=== PATIENT | female | born 1965 | race Caucasian/White ===

== ENCOUNTER 2017-08-15 09:35 | Inpatient (IN) | payer SELFPAY ==
[~2017-08-15] VITALS: Ht 160 cm; Wt 84.0 kg
--- NOTE | 2017-08-15 10:44 | EMERGENCY ROOM VISIT NOTE ---
History Report prepared by Kendallibev: Maya Reid Under the Supervision of: Dr. Mustapha Perez M.D. First contact with patient: 09:51 Chief Complaint: WOUND INFECTION Stated Complaint: INFECTED LEFT ANKLE Nursing Triage Summary: Dog gate fell on left ankle 4 weeks ago, now skin erethymatous, painful, weeping, pt worried about infection. History of Present Illness The patient is a 52 year old female who presents to the Emergency Room with complaints of a possible wound infection on her left lower leg. She states a metal dog gate fell on her lower leg 4 weeks ago. The wound has become increasingly erythematous and painful, so she came to the ED this morning. She rates her discomfort as a 5/10 in severity. She states she does not currently have a PCP and has seen no doctor or clinic for the wound before today. She denies any recent fevers. She is not diabetic. The patient cannot remember when her last tetanus shot was. 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 A total of ten systems were reviewed and were otherwise negative. Past Medical & Surgical Medical Problems: (1) Knee joint cyst, left (2) Leg wound, left Social History Smoking Status: Never Smoker Alcohol Use: none Drug Use: none Marital Status: Housing Status: lives with family Occupation Status: retired Current/Historical Medications Scheduled Cholecalciferol (Vitamin D), 1,000 UNITS PO DAILY Fish Oil ([place]-3), 1 CAP PO DAILY Vitamin A-Beta Carotene (Vitamin A), 1 TAB PO DAILY Allergies Coded Allergies: Penicillins (Unverified Allergy, Unknown, UNKNOWN, 08/15/17) Physical Exam Vital Signs Date Time Temp Pulse Resp B/P (MAP) Pulse Ox O2 Delivery O2 Flow Rate FiO2 08/15/17 14:57 82 16 151/82 08/15/17 09:42 37.3 108 18 154/97 97 Room Air Physical Exam GENERAL: She is oriented to person, place, and time. She appears well-developed and well-nourished. she does not appear distressed. ____ HENT: Exam performed. Head: Normocephalic and atraumatic. Right Ear: External ear normal. No mastoid tenderness. Left Ear: External ear normal. No mastoid tenderness. Mouth/Throat: The oropharynx is clear and moist. No trismus in the jaw. No dental abscesses or uvula swelling. No oropharyngeal exudate or tonsillar abscesses. ____ EYES: Conjunctivae and EOM are normal. Pupils are equal, round, and reactive to light. Right eye exhibits no discharge. Left eye exhibits no discharge. No scleral icterus. ____ NECK: Normal range of motion. Neck supple. No JVD present. No spinous process tenderness present. No carotid bruit present. No rigidity. No tracheal deviation and normal range of motion present. No Brudzinski's sign and no Kernig 's sign noted. ____ CV: Normal rate, regular rhythm, normal heart sounds and intact distal pulses. There is no peripheral edema. Palpable radial pulses bue. ____ PULM/CHEST: Effort normal and breath sounds normal. No respiratory distress. No stridor. She has no wheezes. She has no rales. Chest Wall: She exhibits no tenderness. ____ ABD: The abdomen is soft. Bowel sounds are normal. She has no distension. No mass is present. There is no tenderness. There is no rebound, no guarding, no Nolan's sign and no tenderness at McBurney's point. Rovsig negative MUSC/SKEL: Normal range of motion. Large wound over anterolateral left lower extremity, actively draining yellow, foul smelling purulent discharge, surrounding erythema going up the left leg. The wound goes down to the level of the tendon. There is no deformity. LYMPH: No cervical adenopathy. ____ NEURO: She is alert and oriented to person, place, and time. She has normal strength. No cranial nerve deficit or sensory deficit. Coordination and gait normal. GCS eye subscore is 4. GCS verbal subscore is 5. GCS motor subscore is 6. cerebellar tests wnl. ____ PSYCH: She has a normal mood and affect. Her behavior is normal. Judgment and thought content normal. ____ Medical Decision & Procedures ER Provider Diagnostic Interpretation: Radiology results as stated below per my review and radiologist interpretation: L TIBIA/FIBULA 2 VIEWS ROUTINE CLINICAL HISTORY: L leg wound pain. Cellulitis. Infection. COMPARISON: None. DISCUSSION: Moderate soft tissue edema. No acute bony abnormality. No evidence for lytic or blastic process. No abnormal periosteal reaction. Mild generalized osteopenia and degenerative change. Small heel spur. IMPRESSION: Soft tissue edema. No acute bony abnormality. Small heel spur. The above report was generated using voice recognition software. It may contain grammatical, syntax or spelling errors. Electronically signed by: Arsenio Rendon M.D. 08/15/2017 11:11 AM Laboratory Results 08/15/17 11:00 Red Blood Count 4.34, Mean Corpuscular Volume 90.3, Mean Corpuscular Hemoglobin 31.6, Mean Corpuscular Hemoglobin Concent 34.9, Mean Platelet Volume 10.3, Neutrophils (%) (Auto) 77.9, Lymphocytes (%) (Auto) 14.4, Monocytes (%) (Auto) 6.6, Eosinophils (%) (Auto) 0.4, Basophils (%) (Auto) 0.2, Neutrophils # (Auto) 8.66, Lymphocytes # (Auto) 1.60, Monocytes # (Auto) 0.73, Eosinophils # (Auto) 0.05, Basophils # (Auto) 0.02 08/15/17 11:00 Test 08/15/17 11:00 White Blood Count 11.12 K/uL (4.8-10.8) Red Blood Count 4.34 M/uL (4.2-5.4) Hemoglobin 13.7 g/dL (12.0-16.0) Hematocrit 39.2 % (37-47) Mean Corpuscular Volume 90.3 fL (80-100) Mean Corpuscular Hemoglobin 31.6 pg (25-34) Mean Corpuscular Hemoglobin Concent 34.9 g/dl (32-36) Platelet Count 356 K/uL (130-400) Mean Platelet Volume 10.3 fL (7.4-10.4) Neutrophils (%) (Auto) 77.9 % Lymphocytes (%) (Auto) 14.4 % Monocytes (%) (Auto) 6.6 % Eosinophils (%) (Auto) 0.4 % Basophils (%) (Auto) 0.2 % Neutrophils # (Auto) 8.66 K/uL (1.4-6.5) Lymphocytes # (Auto) 1.60 K/uL (1.2-3.4) Monocytes # (Auto) 0.73 K/uL (0.11-0.59) Eosinophils # (Auto) 0.05 K/uL (0-0.5) Basophils # (Auto) 0.02 K/uL (0-0.2) RDW Standard Deviation 40.9 fL (36.4-46.3) RDW Coefficient of Variation 12.3 % (11.5-14.5) Immature Granulocyte % (Auto) 0.5 % Immature Granulocyte # (Auto) 0.06 K/uL (0.00-0.02) Prothrombin Time 10.2 SECONDS (9.0-12.0) Prothromb Time International Ratio 1.0 (0.9-1.1) Anion Gap 12.0 mmol/L (3-11) Est Creatinine Clear Calc Drug Dose 106.5 ml/min Estimated GFR () 118.5 Estimated GFR (Non- 102.2 BUN/Creatinine Ratio 21.6 (10-20) Lactic Acid Level 1.4 mmol/L (0.4-2.0) Calcium Level 9.0 mg/dl (8.5-10.1) Beta-Hydroxybutyric Acid 12.30 mg/dL (0.2-2.81) Laboratory results reviewed by me Medications Administered Medications (Trade) Dose Ordered Sig/Scar Route Start Time Stop Time Status Last Admin Dose Admin Clindamycin Phosphate (Cleocin 600mg/ 54ml D5W) 600 mg ONE ONCE IV 08/15/17 12:30 08/15/17 12:31 DC 08/15/17 12:30 600 MG Acetaminophen (Tylenol Tab) 650 mg Q4H PRN PO 08/15/17 13:30 09/14/17 13:29 08/15/17 14:33 650 MG Ondansetron HCl (Zofran Inj) 4 mg Q6H PRN IV 08/15/17 13:30 09/14/17 13:29 08/15/17 14:34 4 MG ED Course 1040: The patient was evaluated in room B5. A complete history and physical exam was performed. 1155: I reevaluated the patient. I discussed remaining in the hospital for further evaluation and management, but she declines stating she does not have insurance and needs to get home to her Autistic adult son, as she is very concerned that no one will be able to look after him if she stays in the hospital. 1215: I reevaluated the patient. Her vitals are stable. Her WBC is normal and lactic acid is normal. I again advised the patient be evaluated by the hospital medicine team for IV antibiotics and possible surgical debridement. She is again concerned about her son and having no one look after him and states she does not want to be evaluated in the hospital. She does agree to let me give her 1 dose of IV antibiotics. She initially allowed me to make an appointment with the wound care clinic, but later declined because of not having insurance. I discussed the risks and benefits, and she states she is now considering staying in the hospital and will make calls to see if someone can watch her son. 1230: Cleocin 600 mg IV. 1308: I reevaluated the patient. She is agreeable to remaining in the hospital for further evaluation and management. 1330: I discussed the patients case with Dr. De La O [facility] Hospitalist. The patient will be further evaluated. Medical Decision 1155: I reevaluated the patient. I discussed remaining in the hospital for further evaluation and management, but she declines stating she does not have insurance and needs to get home to her Autistic adult son, as she is very concerned that no one will be able to look after him if she stays in the hospital. 1215: I reevaluated the patient. Her vitals are stable. Her WBC is normal and lactic acid is normal. I again advised the patient be evaluated by the hospital medicine team for IV antibiotics and possible surgical debridement. She is again concerned about her son and having no one look after him and states she does not want to be evaluated in the hospital. She does agree to let me give her 1 dose of IV antibiotics. She initially allowed me to make an appointment with the wound care clinic, but later declined because of not having insurance. I discussed the risks and benefits, and she states she is now considering staying in the hospital and will make calls to see if someone can watch her son. 1230: Cleocin 600 mg IV. 1308: I reevaluated the patient. She is agreeable to remaining in the hospital for further evaluation and management. 1330: I discussed the patients case with Dr. De La O, [facility] Hospitalist. The patient will be further evaluated. Medication Reconcilliation Current Medication List: was personally reviewed by me Blood Pressure Screening Patient's blood pressure: Elevated blood pressure Blood pressure disposition: Referred to PCP Consults Time Called: 1330 Consulting Physician: Dr. De La O, [facility] Hospitalist Returned Call: 1330 I discussed the patients case with Dr. De La O [facility] Hospitalist. The patient will be further evaluated. Impression Primary Impression: Non-healing wound of lower extremity Scribe Attestation The scribe's documentation has been prepared under my direction and personally reviewed by me in its entirety. I confirm that the note above accurately reflects all work, treatment, procedures, and medical decision making performed by me. The chart was completed utilizing [employer] voice recognition software. Grammatical errors, random word insertions, pronoun errors, and incomplete sentences are an occasional consequence of this system due to software limitations, ambient noise, and hardware issues. Any formal questions or concerns about the content, text, or information contained within the body of this dictation should be directly addressed to the physician for clarification. Departure Information Dispostion Being Evaluated By Hospitalist Referrals No Doctor, Assigned (PCP) Patient Instructions [facility]
--- NOTE | 2017-08-15 11:13 | DIAGNOSTIC IMAGING REPORT ---
L TIBIA/FIBULA 2 VIEWS ROUTINE CLINICAL HISTORY: L leg wound pain. Cellulitis. Infection. COMPARISON: None. DISCUSSION: Moderate soft tissue edema. No acute bony abnormality. No evidence for lytic or blastic process. No abnormal periosteal reaction. Mild generalized osteopenia and degenerative change. Small heel spur. IMPRESSION: Soft tissue edema. No acute bony abnormality. Small heel spur. The above report was generated using voice recognition software. It may contain grammatical, syntax or spelling errors. Electronically signed by: Arsenio Rendon M.D. 08/15/2017 11:11 AM Dictated Date/Time: 08/15/2017 11:10 AM
[2017-08-15] MEDS ORDERED: CHOL100010 PO (11:16)
[2017-08-15] MEDS ORDERED: OMEG10007 PO (11:16)
[2017-08-15] MEDS ORDERED: VITATAB19 PO (11:16)
[2017-08-15 11:23] LABS: BASO % 0.2 %; BASO ABS # 0.02 K/uL (0-0.2); EOS % 0.4 %; EOS ABS # 0.05 K/uL (0-0.5); HEMATOCRIT 39.2 % (37-47); HEMOGLOBIN 13.7 g/dL (12.0-16.0); IG# 0.06 K/uL (0.00-0.02); LYMPH % 14.4 %; MEAN CELL VOLUME 90.3 fL (80-100); MEAN CORPUSCULAR HEMOGLOBIN 31.6 pg (25-34); MEAN CORPUSCULAR HGB CONC 34.9 g/dl (32-36); MEAN PLATELET VOLUME 10.3 fL (7.4-10.4); MONO % 6.6 %; MONO ABS # 0.73 K/uL (0.11-0.59); NEUT % 77.9 %; NEUT ABS # 8.66 K/uL (1.4-6.5); PLATELET COUNT 356 K/uL (130-400); RED CELL DISTRIBUTION WIDTH CV 12.3 % (11.5-14.5); RED CELL DISTRIBUTION WIDTH SD 40.9 fL (36.4-46.3); WHITE BLOOD COUNT 11.12 K/uL (4.8-10.8)
[2017-08-15 11:46] LABS: CREATININE 0.62 mg/dl (0.60-1.20); POTASSIUM 3.7 mmol/L (3.5-5.1)
[2017-08-15] MEDS ORDERED: CLINDAMYCIN 600 MG/54 ML D5W IV ONE (12:30)
[2017-08-15] MEDS ORDERED: ONDANSETRON INJ 2 MG/ML 2 ML VIAL IV PRN (13:30)
[2017-08-15] MEDS ORDERED: ACETAMINOPHEN 325 MG TAB PO PRN (13:45)
[2017-08-15] MEDS ORDERED: MoRPHine SULFATE 2 MG/ML CARP IV PRN (13:45)
[2017-08-15] MEDS ORDERED: DEXTROSE 50% 50 ML SYR IV PRN (14:15)
[2017-08-15] MEDS ORDERED: GLUCAGON FOR INJ 1 MG VIAL SQ PRN (14:15)
[2017-08-15] MEDS ORDERED: GLUCOSE 10 TABS/TUBE PO PRN (14:15)
[2017-08-15] MEDS ORDERED: GLUCOSE 40% GEL 15 GM TUBE PO PRN (14:15)
--- NOTE | 2017-08-15 14:18 | History and Physical ---
History & Physical Date & Time of Service: Aug 15, 2017 at 13:48 Chief Complaint: Infected Left Ankle Primary Care Physician: No Doctor, Assigned History of Present Illness Source: patient This is a 52 yo F with PMHx of Left knee surgery, obesity with BMI 32, remote 20 pack year smoking history, quit 2 months ago, but no other known medical history with a left leg wound which she sustained after a metal fence hit her leg approximately 4-6 weeks ago. She reports the wound was slowly getting larger and that it became red around the open region. She also notes an increased swelling in her left leg in the past 5 days. She had been treating the wound with vinegar water (1:4 ratio) and polysporin ointment. She was not wrapping the wound tightly but enough to keep it unexposed. She recently got over the stomach flu with diarrhea, vomiting and poor oral intake which started last Wednesday. At this point her symptoms are essentially resolved. Overall she reports a fairly good diet with raw vegetables and fruits, high protein, etc. She goes for walks often because of her dog. Here in the ER it appears the left lateral leg wound is extensive, with tendon exposure, draining purulent material. She is afebrile, VSS and has a minimal WBC of 11K Glucose significantly elevated > 400, + AG =12 and ketones 12.3 so she is also an unknown/newly diagnosed pt with diabetes. Family History Mother: DM, CAD, from DM complications Father: CAD, HTN, HLD, Sister: [employer], 3 years older than pt with hx of CAD and quadruple bypass surgery 7 years ago. 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, ) Multi-Drug Resistant Organisms History of MDRO: No Allergies Coded Allergies: Penicillins (Unverified Allergy, Unknown, UNKNOWN, 08/15/17) Home Medications Scheduled Cholecalciferol (Vitamin D), 1,000 UNITS PO DAILY Fish Oil ([place]-3), 1 CAP PO DAILY Vitamin A-Beta Carotene (Vitamin A), 1 TAB PO DAILY Review of Systems Constitutional: No fever, No chills, No sweats, No weight loss, No fatigue Eyes: No worsening of vision, No diplopia ENT: No sore throat, No trouble swallowing Respiratory: No cough, No shortness of breath, No dyspnea on exertion Cardiovascular: No chest pain, No edema, No palpitations Abdomen: No pain, No nausea, No vomiting, No diarrhea, No constipation Musculoskeletal: + swelling, + problem reported (see HPI), No joint pain Genitourinary - Female: No dysuria Neurologic: No weakness, No numbness/tingling, No balance problems Psychiatric: No depression symptoms, No anxiety Endocrine: No fatigue Integumentary: No rash, No itch Physical Exam Vital Signs Date Time Temp Pulse Resp B/P (MAP) Pulse Ox O2 Delivery O2 Flow Rate FiO2 08/15/17 09:42 37.3 108 18 154/97 97 Room Air General Appearance: WD/WN, no apparent distress, + obese Head: normocephalic, atraumatic Eyes: PERRL, EOMI ENT: hearing grossly normal, pharynx normal Neck: no adenopathy, no JVD Respiratory/Chest: lungs clear, no respiratory distress, no accessory muscle use Cardiovascular: no JVD, no murmur, normal peripheral pulses, + pertinent finding (Regular rate, slightly tachycardic) Abdomen/GI: normal bowel sounds, non tender, soft Back: normal inspection, no CVA tenderness Extremities/Musculoskelatal: no calf tenderness, + pedal edema (1+ pitting BLE. ), + pertinent finding (Left proximal lateral malleolus wound appears to be ~ 9cm in diameter with purulent material and 2 cm of exposed tendon centrally. + Surrounding erythema and warmth. No necrosis. Nonpainful with probe. Pt reports sensation to light touch in lower extremities is intact. Pulse in LLE difficult to palpate. 1+ in RLE.) Neurologic/Psych: alert, normal mood/affect, oriented x 3 Skin: normal color, warm/dry Diagnostics Laboratory Results Results Past 24 Hours Test 08/15/17 11:00 08/15/17 13:27 Range/Units White Blood Count 11.12 4.8-10.8 K/uL Red Blood Count 4.34 4.2-5.4 M/uL Hemoglobin 13.7 12.0-16.0 g/dL Hematocrit 39.2 37-47 % Mean Corpuscular Volume 90.3 80-100 fL Mean Corpuscular Hemoglobin 31.6 25-34 pg Mean Corpuscular Hemoglobin Concent 34.9 32-36 g/dl Platelet Count 356 130-400 K/uL Mean Platelet Volume 10.3 7.4-10.4 fL Neutrophils (%) (Auto) 77.9 % Lymphocytes (%) (Auto) 14.4 % Monocytes (%) (Auto) 6.6 % Eosinophils (%) (Auto) 0.4 % Basophils (%) (Auto) 0.2 % Neutrophils # (Auto) 8.66 1.4-6.5 K/uL Lymphocytes # (Auto) 1.60 1.2-3.4 K/uL Monocytes # (Auto) 0.73 0.11-0.59 K/uL Eosinophils # (Auto) 0.05 0-0.5 K/uL Basophils # (Auto) 0.02 0-0.2 K/uL RDW Standard Deviation 40.9 36.4-46.3 fL RDW Coefficient of Variation 12.3 11.5-14.5 % Immature Granulocyte % (Auto) 0.5 % Immature Granulocyte # (Auto) 0.06 0.00-0.02 K/uL Sodium Level 134 136-145 mmol/L Potassium Level 3.7 3.5-5.1 mmol/L Chloride Level 99 98-107 mmol/L Carbon Dioxide Level 23 21-32 mmol/L Anion Gap 12.0 3-11 mmol/L Blood Urea Nitrogen 13 7-18 mg/dl Creatinine 0.62 0.60-1.20 mg/dl Est Creatinine Clear Calc Drug Dose 106.5 ml/min Estimated GFR () 118.5 Estimated GFR (Non- 102.2 BUN/Creatinine Ratio 21.6 10-20 Random Glucose 434 70-99 mg/dl Lactic Acid Level 1.4 0.4-2.0 mmol/L Calcium Level 9.0 8.5-10.1 mg/dl Beta-Hydroxybutyric Acid 12.30 0.2-2.81 mg/dL Diagnostic Radiology L TIBIA/FIBULA 2 VIEWS ROUTINE CLINICAL HISTORY: L leg wound pain. Cellulitis. Infection. COMPARISON: None. DISCUSSION: Moderate soft tissue edema. No acute bony abnormality. No evidence for lytic or blastic process. No abnormal periosteal reaction. Mild generalized osteopenia and degenerative change. Small heel spur. IMPRESSION: Soft tissue edema. No acute bony abnormality. Small heel spur. The above report was generated using voice recognition software. It may contain grammatical, syntax or spelling errors. Electronically signed by: Arsenio Rendon M.D. 08/15/2017 11:11 AM Dictated Date/Time: 08/15/2017 11:10 AM The status of this report is Signed. Impression Assessment and Plan 52 yo F with PMHx of Left knee surgery, obesity with BMI 32, remote 20 pack year smoking history, quit 2 months ago, but no other known medical history with a left leg wound which she sustained after a metal fence hit her leg approximately 4-6 weeks ago. Left Lower extremity wound - Admit to med/surg - Sustained from metal fence falling on the pt leg. - WBC minimally elevated at 11K, afebrile, VSS - Pt had been using vinegar water, polysporin and wrapping a lose dressing overtop of the wound - Wound consulted - Dr. Covarrubias per request of Dr. Robyn Ivan - ? wound vac. Consider orthopedic consult. Cover dressing with clean dry kerlix for now. - Will obtain an MRI of the LLE to r/o abscess, tracking or osteomyelitis considering newly diagnosed DM - Wound culture - Start on IV clindamycin and cefepime for adequate coverage of Gram -, pseudomonas, and Gram + microbes. - Check ZAC of LLE Newly diagnosed DM II - Elevated Glucose > 400 at time of admission - Checking A1C - ISS with accuchecks for now - Diabetic consultation Hx of Smoking - Quit 2 months ago, 20 years x 1ppd. Obesity - Diet and exercise will need to be discussed prior to discharge from the hospital. DVT ppx: lovenox, teds, scds on nonaffected leg CODE STATUS: FULL Disposition: From home, uninsured, CM to assist with dc planning. PA Physician Supervision Note: I interviewed and examined the patient. Discussed with Selma HERMAN and agree with findings and plan as documented in the note. Any exceptions or clarifications are listed here: None Patient here with a significant infected ulceration to her left lateral leg there is exposed Proteus longus tendon. The patient is a markedly elevated glucose on presentation but no defined history of diabetes she also is previous even a smoker and just recently quit smoking she is poor pulses and perhaps Malter sensation Vital signs however are stable Physical physical exam shows heart irregular lungs be clear there is a extremely large 4 x 5 cm area of ulceration with exposed tendon his mentions slopping yellow tissue and surrounding erythema to her left lower extremity. Infection by history consideration of vascular ulcer We'll continue clindamycin and cefepime wound care consult MRI to evaluate for deeper tissue infection and arterial Doppler for arterial competency Documented By: Cyrus De La O VTE Prophylaxis VTE Risk Assessment Done? Y/N: Yes Risk Level: Very Low
[2017-08-15] MEDS: ACETAMINOPHEN 325 MG TAB PO PRN ×2 (14:33→19:49)
[2017-08-15] MEDS ORDERED: INSULIN ASPART 100 UNITS/ML 3 ML PEN SC SCH (16:00)
[2017-08-15 16:40] VITALS: BP 156/92; PULSE 96; TEMP 36.8; O2SAT 96; BMI 32.8
[2017-08-15] MEDS ORDERED: MoRPHine SULFATE 4 MG/ML 1 ML CARP\\VIAL IV PRN (17:00)
[2017-08-15] MEDS ORDERED: GADAVIST IV PRN (17:15)
--- NOTE | 2017-08-15 17:22 | DIAGNOSTIC IMAGING REPORT ---
L LOWER EXT NONJOINT COMBO CLINICAL HISTORY: Assess for abscess, osteomyelitis pain. Infection. TECHNIQUE: Multi axial MRI acquisition pre and post gadolinium enhancement. COMPARISON STUDY: None FINDINGS: Signal characteristics the osseous structures indicate a mild bone contusion involving the distal tibia as well as bulk of the intertarsal region. There are findings of a soft tissue wound lateral to the distal aspect of the distal fibula. There appears to be a moderate degree of packing material within the superficial wound. All major ligamentous and tendinous structures appear to be intact. Postcontrast images show evidence for a generalized cellulitis about the peripheral aspects of the ankle. This includes the ventral as well as the dorsal aspects of the ankle. All major ligamentous and tendinous structures appear to be intact. There does not appear to be evidence for a bony destructive process. There is no significant or abnormal postcontrast enhancement of the distal fibula or any additional osseous structure. There is no drainable abscess or collection. IMPRESSION: 1. Findings consistent with a mild generalized cellulitis involving the soft tissue structures and fat about the left ankle. 2. No evidence for osteomyelitis based on this study. 3. No evidence for drainable abscess or collection. 4. Mild bone contusion involving the tarsal bones and distal tibia. The above report was generated using voice recognition software. It may contain grammatical, syntax or spelling errors. Electronically signed by: Arsenio Rendon M.D. 08/15/2017 5:20 PM Dictated Date/Time: 08/15/2017 5:10 PM
[2017-08-15] MEDS: OXYCODONE HCL IR 5 MG TAB (IMMEDIATE RELEASE) PO PRN ×2 (17:54→23:49)
[2017-08-15] MEDS: CEFEPIME IV 2,000 MG in SYRINGE 7.5 ML IV SCH (18:55)
[2017-08-15] MEDS: ENOXAPARIN 30 MG/0.3 ML SYR SQ SCH (20:45)
[2017-08-15] MEDS: CLINDAMYCIN IV 900 MG in DEXTROSE 5% 100ML 100 ML IV SCH (20:46)
[2017-08-15] MEDS ORDERED: INSULIN GLARGINE SOLOSTAR 100 UNITS/ML 3 ML PEN SC STA (21:43)
[2017-08-15] MEDS ORDERED: PHARMACY GLYCEMIC MGMT CONSULT PRN (21:56)
[2017-08-15] MEDS ORDERED: INSULIN HUMAN REGULAR PER UNIT 7 UNITS in SYRINGE 6.93 ML IV SCH (22:00)
[2017-08-15] MEDS: NSS + 20MEQ KCL 1000ML 1,000 ML IV SCH (22:11)
[2017-08-15 23:25] VITALS: BP 131/84; PULSE 100; TEMP 36.9; O2SAT 94
[2017-08-16] VITALS (10 sets, daily range): BP systolic 119–135; BP diastolic 78–86; PULSE 89–102; TEMP 36.6–37.1; O2SAT 89–96; BMI 32.8
[2017-08-16] MEDS: INSULIN ASPART 100 UNITS/ML 3 ML PEN SC SCH ×3 (00:14→21:25)
[2017-08-16] MEDS: CEFEPIME IV 2,000 MG in SYRINGE 7.5 ML IV SCH ×3 (01:53→18:55)
[2017-08-16] MEDS: ACETAMINOPHEN 325 MG TAB PO PRN ×2 (01:53→09:27)
[2017-08-16] MEDS: CLINDAMYCIN IV 900 MG in DEXTROSE 5% 100ML 100 ML IV SCH ×3 (04:00→20:49)
[2017-08-16] MEDS ORDERED: INSULIN HUMAN REGULAR PER UNIT 4 UNITS in SYRINGE 3.96 ML IV SCH (04:30)
[2017-08-16] MEDS: NSS + 20MEQ KCL 1000ML 1,000 ML IV SCH ×2 (06:43→14:04)
[2017-08-16] MEDS: OXYCODONE HCL IR 5 MG TAB (IMMEDIATE RELEASE) PO PRN ×3 (06:44→20:48)
[2017-08-16 06:46] LABS: HEMOGLOBIN A1C 13.4 % (4.5-5.6)
--- NOTE | 2017-08-16 07:45 | DIAGNOSTIC IMAGING REPORT ---
ART DOP LOWER EXT BILAT CLINICAL HISTORY: 52 years-old Female presenting with eval for arterial competency, nonhealing left ankle wound. TECHNIQUE: Real-time grayscale and color and spectral Doppler ultrasound imaging of the bilateral lower extremities arteries was performed. Measurements calculated based on NASCET criteria. COMPARISON: None. FINDINGS: Right: Common femoral artery: Patent. Peak systolic velocity 67 cm/s. Superficial femoral artery: Atherosclerosis. Peak systolic velocity 123 cm/s proximally, 54 cm/s in the midportion, and 29 cm/s distally. Focal defect in the distal right SFA with aliasing and low resistance high velocity waveforms, peak systolic velocity 478 cm/s. Beyond this, the right SFA demonstrates an occluded segment with thrombus. This measures 3.8 cm in length. Reconstitution of flow in the distal most right SFA with peak systolic velocity 17-55 cm/s. Deep femoral artery: Patent. Peak systolic velocity 74 cm/s. Popliteal artery: Patent. Peak systolic velocity 49-80 cm/s. Anterior tibial artery: Patent. Peak systolic velocity 41-46 cm/s. Posterior tibial artery: Partially patent. Peak systolic velocity 14-23 cm/s in the patent portion. The mid PASTRY ARTIST appears occluded. Duplicated right posterior tibial veins patent. The distal right PASTRY ARTIST is patent though with reversed flow likely indicating reconstitution from distal collateral vessel. Peroneal artery: Patent. Peak systolic velocity 24-30 cm/s. Dorsalis pedis: Patent. Peak systolic velocity 32 cm/s. Left: Common femoral artery: Patent. Peak systolic velocity 64 cm/s. Superficial femoral artery: Significant atherosclerotic plaque at the origin and proximal course of the left SFA. Immediately proximal to the most significant site of resultant stenosis, the left SFA has a peak systolic velocity 31 cm/s. At the site of stenoses, peak systolic velocity 128-132 cm/s. Beyond this, the remainder of the left SFA is occluded. Deep femoral artery: Patent. Peak systolic velocity 59 cm/s. Popliteal artery: Reconstitution of flow, which is reversed in the proximal left popliteal artery. Beyond this, the popliteal artery demonstrates normal directional flow with low resistance waveforms and a peak systolic velocity 66 cm/s. Anterior tibial artery: Blunted waveforms. Peak systolic velocity 18-61 cm/s. Posterior tibial artery: Highly diminished flow. Peroneal artery: Highly diminished flow. The left peroneal vein may be occluded. Dorsalis pedis: Patent. Peak systolic velocity 30 cm/s. ZAC Brachial: Right: 143 mmHg, Left: 150 mmHg. Ankle (Posterior tibial): Right: 67 mmHg, Left: Not obtained. Ankle (Dorsalis pedis): Right: 82 mmHg, Left: Not obtained. Ankle/Brachial Index: Right: 0.45-0.55, Left: Not obtained. Reference ranges: Normal ZAC 1.0-1.4; 0.9-0.99 borderline; less than 0.9 abnormal. IMPRESSION: 1. 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 Immediately beyond this, there is a short segment of occlusion in the distal aspect of the right superficial femoral artery. 2. Partial occlusion of the right posterior tibial artery with distal reconstitution of flow. 3. Abnormal right ankle brachial index, consistent with diminished flow to the right lower extremity. 4. Multifocal sites of stenoses in the proximal left superficial femoral artery secondary to atherosclerotic plaque. These appear hemodynamically significant evidenced by the degree of increased velocity. 5. Long segment of occlusion of the left SFA beyond the sites of stenoses. 6. Reconstitution of flow in the left popliteal artery. The remainder of the left lower leg demonstrates diminished flow though the dorsalis pedis remains patent. 7. Left ankle brachial index could not be obtained secondary to wound. The report will be called/faxed according to standard departmental protocol. Electronically signed by: Hammad Estevez M.D. 08/16/2017 7:43 AM Dictated Date/Time: 08/16/2017 7:22 AM
[2017-08-16] MEDS ORDERED: INSULIN ASPART 100 UNITS/ML 3 ML PEN SC SCH ×3 (08:00→18:00)
[2017-08-16] MEDS ORDERED: INSULIN GLARGINE SOLOSTAR 100 UNITS/ML 3 ML PEN SC SCH (09:00)
[2017-08-16] MEDS ORDERED: [UNRECOGNIZED DRUG - OTHER] PO SCH (09:00)
[2017-08-16 09:07] LABS: BASO % 0.2 %; BASO ABS # 0.02 K/uL (0-0.2); EOS % 1.1 %; EOS ABS # 0.14 K/uL (0-0.5); HEMATOCRIT 39.8 % (37-47); HEMOGLOBIN 13.5 g/dL (12.0-16.0); IG# 0.05 K/uL (0.00-0.02); LYMPH % 18.1 %; LYMPH ABS # 2.22 K/uL (1.2-3.4); MEAN CELL VOLUME 91.1 fL (80-100); MEAN CORPUSCULAR HEMOGLOBIN 30.9 pg (25-34); MEAN CORPUSCULAR HGB CONC 33.9 g/dl (32-36); MEAN PLATELET VOLUME 10.3 fL (7.4-10.4); MONO % 7.4 %; MONO ABS # 0.91 K/uL (0.11-0.59); NEUT % 72.8 %; PLATELET COUNT 343 K/uL (130-400); RED CELL DISTRIBUTION WIDTH CV 12.3 % (11.5-14.5); RED CELL DISTRIBUTION WIDTH SD 41.2 fL (36.4-46.3); WHITE BLOOD COUNT 12.24 K/uL (4.8-10.8)
[2017-08-16] MEDS: CHOLECALCIFEROL 1000 INTER.UNIT TAB PO SCH (09:22)
[2017-08-16] MEDS: OMEGA-3 (PURIFIED FISH OIL) 1 GM CAP PO SCH (09:22)
[2017-08-16] MEDS: ENOXAPARIN 30 MG/0.3 ML SYR SQ SCH ×2 (09:41→21:10)
[2017-08-16 09:49] LABS: CALCIUM 8.5 mg/dl (8.5-10.1); CREATININE 0.55 mg/dl (0.60-1.20); POTASSIUM 3.4 mmol/L (3.5-5.1)
--- NOTE | 2017-08-16 10:35 | Surgery Consultation ---
Consultation Date of Service Aug 16, 2017. Chief Complaint LLE wound History of Present Illness The patient is a 52 year old female without PMH, admitted with LLE lateral wound , seen in consultation for same. Pt states she struck her LLE at home and the wound has not been healing. Tried vinegar to wound without success. Admits pain around LLE, but has been ambulating and working with the wound present. Admits fatigue. Denies AU, fever, chills, chest pain, SOB, abd pain, N/V, rest pain, claudication, other complaints. Arterial US demonstrates significant arterial disease LLE as well. Vitals Vital Signs Past 12 Hours Date Time Temp Pulse Resp B/P (MAP) Pulse Ox O2 Delivery O2 Flow Rate FiO2 08/16/17 07:23 36.9 102 16 119/79 (92) 92 Room Air 08/15/17 23:25 36.9 100 17 131/84 (100) 94 Room Air 08/15/17 23:20 Room Air Allergies Coded Allergies: Penicillins (Unverified Allergy, Unknown, UNKNOWN, 08/15/17) Home Medications Scheduled Cholecalciferol (Vitamin D), 1,000 UNITS PO DAILY Fish Oil (Blanco-3), 1 CAP PO DAILY Vitamin A-Beta Carotene (Vitamin A), 1 TAB PO DAILY Problem List Medical Problems: (1) Knee joint cyst, left (2) Leg wound, left Surgical / Medical History Hx Cardiac Surgery: No Hx Abdominal Surgery: Yes (tubes removed after ) Hx Cancer Surgery: No Hx Thoracic Surgery: No Hx Orthopedic: Yes (knee surgery) Hx Urinary Tract Surgery: No HX Other Surgery: No Past Medical/Surgical History: High Cholesterol Family History Noncontributory Social History Smoking Status: Former Smoker Hx Tobacco Use In Past Year?: Yes (quit smoking 2 months ago) Hx Alcohol Use - Type & Amnt: No Hx Substance Use -Type & Amnt: No Review of Systems Constitutional: + malaise, No chills, No fever Skin: + change in color (LLE erythema) Eyes: No visual changes ENMT: No sore throat Respiratory: No cough, No hemoptysis, No short of breath Cardiovascular: No chest pain, No palpitations, No syncope Gastrointestinal: No abdominal pain, No nausea, No vomiting Genitourinary - Female: No dysuria, No hematuria Neurologic: No dizziness, No headache, No lethargy, No numbness, No tingling Physical Exam Constitutional: General Apperance: well-nourished, well-developed Level of Distress: NAD, chronically ill Psychiatric: Mental Status: active & alert, normal mood, normal affect Orientation: oriented except where noted, to time, to place, to person Memory: recent memory normal, remote memory normal Head: normocephalic, atraumatic Eyes: EOM: EOMI ENMT: normal ENT inspection, hearing grossly normal Neck: supple, trachea midline Lungs: Respiratory effort: no dyspnea Auscultation: no rales/crackles, no rhonchi Cardiovascular: Apical Impulse: not displaced Heart Auscultation: RRR, no rubs, no gallops Peripheral Pulses: Pulses: full and equal, in all extremities except if noted Bruits: none appreciated Carotid Pulse: normal on the left, normal on the right Brachial Pulses: normal on the left, normal on the right Radial Pulse: normal on the left, normal on the right Femoral Pulse: normal on the left, normal on the right Posterior Tibialis Pulse: pertinent finding (nonpalapble) Dorsalis Pedis Pulse: pertinent finding (nonpalpble) Abdomen: Bowel Sounds: normal Inspection & Palpation: soft, non-distended, no tenderness, guarding & rebound Musculoskeletal: normal strength (5/5 throughout), normal tone Extremities: Upper Right: no cyanosis, no edema, no varicosities Upper Left: no cyanosis, no edema, no varicosities Lower Right: no cyanosis, no edema, no varicosities Lower Left: pertinent finding (Distal lateral lower leg with large, deep malodorous, open wound. Tendon visible, purulent discharge noted. + erythema and boggy periwound tissue. + warmth) Neurologic: Cranial Nerves: grossly intact Sensation: grossly intact Assessment and Plan ASSESSMENT and PLAN: LLE infected wound, possible fasciitis Pt also seen by Dr Danielson, recommends urgent debridement of LLE today. Pt agreeable.
--- NOTE | 2017-08-16 12:28 | Hospitalist Progress Note ---
Hospitalist Progress Note Date of Service Aug 16, 2017. (Selma Balderrama PA-C) [facility] Physician Supervision Note: I interviewed and examined the patient. Discussed with Selma Balderrama PAC and agree with findings and plan as documented in the note. Any exceptions or clarifications are listed here: None Patient still has not proceeded to surgery for surgical debridement of her left lateral ankle cellulitis and significant ulcer present on admission with exposed Proteus longus tendon she is tearful but understands that she is a newly diagnosed diabetic she has no focal complaints or problems Temperature still afebrile 36 9 pulse with 2 respiration rate 16 BP 119/79 O2 sat 92 on room air Cardiac exam is regular without murmurs lungs are clear without wheezes or crackles Of note her arterial Doppler study is markedly abnormal for perfusion to her leg Patient presents with a significant cellulitis of her left lower extremity with tissue loss the patient continues on clindamycin and cefepime with vascular surgery evaluation for possible washout Documented By: Cyrus De La O (Cyrus De La O M.D.) Subjective Pt evaluation today including: conversation w/ patient, physical exam, chart review, lab review, review of studies Pain: Surrounding the LLE wound PO Intake: NPO Voiding: no voiding problems The patient was seen and examined this morning. Pt reports feeling overwhelmed, especially emotionally. She is teary-eyed at the beginning of our exam. She tells me she can barely keep all of this information straight. Vascular surgery was consulted early today due to multivessel disease in the lower extremities - and they have put the patient on as a case today. The pt is anticipating surgery later this afternoon to have the foot debrided by Dr. Danielson. She seems to have understood this information well. ROS: Constitutional: No fever, sweats or chills Eyes: No diplopia, no worsening or blurred vision ENT: normal hearing, no trouble swallowing Respiratory: No cough, sputum, dyspnea at rest or on exertion Cardiovascular: No chest pain, tightness or palpitations Abdomen: No pain, nausea, vomiting, diarrhea or constipation Musculoskeletal: + Minimal pain surrounding the LLE, erythema still present. No joint pain, calf pain. Neurologic: No weakness, numbness/tingling, or balance problems (Selma Balderrama PA-C) Objective Vital Signs Date Time Temp Pulse Resp B/P (MAP) Pulse Ox O2 Delivery O2 Flow Rate FiO2 08/16/17 07:23 36.9 102 16 119/79 (92) 92 Room Air 08/15/17 23:25 36.9 100 17 131/84 (100) 94 Room Air 08/15/17 23:20 Room Air 08/15/17 16:40 36.8 96 16 156/92 96 Room Air 08/15/17 16:40 96 Room Air 08/15/17 14:57 82 16 151/82 (Selma Balderrama PA-C) Physical Exam Notes: General Appearance: WD/WN, no apparent distress, + obese Head: normocephalic, atraumatic Eyes: PERRL, EOMI ENT: hearing grossly normal, pharynx normal Neck: no adenopathy, no JVD Respiratory/Chest: lungs clear, no respiratory distress, no accessory muscle use Cardiovascular: no JVD, no murmur, normal peripheral pulses, + pertinent finding (Regular rate, slightly tachycardic) Abdomen/GI: normal bowel sounds, non tender, soft Extremities/Musculoskeletal: no calf tenderness, + pedal edema (1+ pitting BLE. ), + pertinent finding (Left proximal lateral malleolus wound appears to be ~ 9cm in diameter with purulent material and 2 cm of exposed tendon centrally. + Surrounding erythema and warmth. Pulse in LLE difficult to palpate , 1+ in RLE.) Neurologic/Psych: AAO x 3, anxious and teary eyed at times Skin: normal color, warm/dry (Selma Balderrama PA-C) Laboratory Results Last 24 Hours Test 08/15/17 16:47 08/15/17 20:21 08/16/17 00:03 08/16/17 03:50 Bedside Glucose 320 mg/dl 344 mg/dl 262 mg/dl 282 mg/dl Test 08/16/17 08:04 08/16/17 08:31 08/16/17 12:06 Bedside Glucose 286 mg/dl 228 mg/dl White Blood Count 12.24 K/uL Red Blood Count 4.37 M/uL Hemoglobin 13.5 g/dL Hematocrit 39.8 % Mean Corpuscular Volume 91.1 fL Mean Corpuscular Hemoglobin 30.9 pg Mean Corpuscular Hemoglobin Concent 33.9 g/dl Platelet Count 343 K/uL Mean Platelet Volume 10.3 fL Neutrophils (%) (Auto) 72.8 % Lymphocytes (%) (Auto) 18.1 % Monocytes (%) (Auto) 7.4 % Eosinophils (%) (Auto) 1.1 % Basophils (%) (Auto) 0.2 % Neutrophils # (Auto) 8.90 K/uL Lymphocytes # (Auto) 2.22 K/uL Monocytes # (Auto) 0.91 K/uL Eosinophils # (Auto) 0.14 K/uL Basophils # (Auto) 0.02 K/uL RDW Standard Deviation 41.2 fL RDW Coefficient of Variation 12.3 % Immature Granulocyte % (Auto) 0.4 % Immature Granulocyte # (Auto) 0.05 K/uL Sodium Level 133 mmol/L Potassium Level 3.4 mmol/L Chloride Level 99 mmol/L Carbon Dioxide Level 25 mmol/L Anion Gap 9.0 mmol/L Blood Urea Nitrogen 13 mg/dl Creatinine 0.55 mg/dl Est Creatinine Clear Calc Drug Dose 120.0 ml/min Estimated GFR () 123.2 Estimated GFR (Non- 106.3 BUN/Creatinine Ratio 24.0 Random Glucose 251 mg/dl Calcium Level 8.5 mg/dl (Selma Balderrama, PANormaC) Assessment and Plan 52 yo F with PMHx of Left knee surgery, obesity with BMI 32, remote 20 pack year smoking history, quit 2 months ago, but no other known medical history with a left leg wound which she sustained after a metal fence hit her leg approximately 4-6 weeks ago. Left Lower extremity wound - WBC remains stable 11K, afebrile, VSS - Wound consulted - Dr. Covarrubias not available this week, wound nurse will see. - ABIs showed multi-vessel disease so Vascular surgery was consulted this morning, planned for urgent debridement by Dr. Danielson today. Check fasting lipid panel with am labs - pt will likely need statin therapy Ordered carotid U/S to r/o other vessel disease. - MRI of the LLE negative for osteomyelitis/abscess - Wound culture in process - Cont clindamycin and cefepime (initiated 08/15) Newly diagnosed DM II - Elevated Glucose > 400 at time of admission - A1C= 13.4 - Continue on Lantus 14 U BID, ISS with accuchecks - Diabetic consultation Hx of Smoking - Quit 2 months ago, 20 years x 1ppd. Obesity - Diet and exercise will need to be discussed prior to discharge from the hospital. DVT ppx: lovenox, teds, scds on nonaffected leg CODE STATUS: FULL Disposition: From home, uninsured, CM to assist with dc planning - pt has filled out MA paperwork today, to OR today for debridement. (Selma Balderrama, PA-C)
[2017-08-16] MEDS ORDERED: NURSING VERBAL MED ORDER ONE ×2 (12:30→21:30)
--- NOTE | 2017-08-16 14:55 | DIAGNOSTIC IMAGING REPORT ---
CAROTID DOPPLER NECK ART CLINICAL HISTORY: 52 years-old Female presenting with Assess for stenosis, vascular disease peripherally. TECHNIQUE: Real-time grayscale and color and spectral Doppler ultrasound imaging of the bilateral carotid arteries was performed. NASCET criteria was used in evaluating this study. COMPARISON: None. FINDINGS: Right: Common carotid: Atherosclerosis. Peak systolic velocity 79 cm/s. Internal carotid artery: Atherosclerosis of the proximal ICA. Peak systolic velocity 76 cm/s. Systolic ratio: 0.96. External carotid artery: Patent. Peak systolic velocity 85 cm/s. Left: Common carotid: Atherosclerosis. Peak systolic velocity 108 cm/s. Internal carotid artery: Atherosclerosis of the proximal ICA. Peak systolic velocity 121 cm/s. Systolic ratio: 1.1. External carotid artery: Atherosclerosis. Peak systolic velocity 105 cm/s. Bilateral antegrade flow within the vertebral arteries. Reference ranges: Stenosis measurements are compared to reference velocity parameters. ICA peak systolic velocity (PSV) < 125 cm/s normal or indicating < 50% stenosis; ICA PSV 125-230 cm/s equivalent to 50-69% stenosis; ICA PSV > 230 cm/s equivalent to greater than or equal to 70% stenosis. ICA PSV to common carotid artery PSV ratio < 2 normal or < 50% stenosis; 2-4 equates to 50-69% stenosis, > 4 equates to greater than or equal to 70% stenosis. Normal ICA end-diastolic velocity less than 40. Blood pressure Brachial: Right: 148/98 mmHg, Left: 153/95 mmHg. IMPRESSION: Atherosclerosis without hemodynamically significant stenosis seen within the carotid arteries. Electronically signed by: Hammad Estevez M.D. 08/16/2017 2:53 PM Dictated Date/Time: 08/16/2017 2:52 PM
[2017-08-16] MEDS ORDERED: GLYCOPYRROLATE INJ 0.2 MG/ML VIAL ONE (16:14)
[2017-08-16] MEDS ORDERED: FENTANYL CITRATE INJ 50 MCG/1 ML 2 ML VIAL ONE ×2 (16:14→16:57)
[2017-08-16] MEDS ORDERED: PROPOFOL IV EMULSION 10 MG/ML 20 ML VIAL IV ONE (16:14)
[2017-08-16] MEDS ORDERED: PHENYLEPHRINE HCL INJ 10 MG/ML VIAL ONE (16:14)
[2017-08-16] MEDS ORDERED: LIDOCAINE HCL 2% 2 ML VIAL (20MG/ML) ONE (16:14)
[2017-08-16] MEDS ORDERED: ONDANSETRON INJ 2 MG/ML 2 ML VIAL ONE (16:14)
[2017-08-16] MEDS ORDERED: DEXAMETHASONE SOD INJ 4 MG/ML VIAL ONE (16:14)
[2017-08-16] MEDS ORDERED: EpHEDrine SULFATE INJ 50 MG/ML AMP ONE (16:14)
[2017-08-16] MEDS ORDERED: NEOSTIGMINE METHYLSULFATE 5 MG/5 ML SYR ONE (16:14)
[2017-08-16] MEDS ORDERED: SUCCINYLCHOLINE CHLORIDE 20 MG/ML 10 ML VIAL IV ONE (16:14)
[2017-08-16] MEDS ORDERED: LABETALOL HCL IV 5 MG/ML 20ML IV PRN (16:30)
[2017-08-16] MEDS ORDERED: ONDANSETRON INJ 2 MG/ML 2 ML VIAL IV PRN (16:30)
[2017-08-16] MEDS ORDERED: PHENYLEPHRINE 100MCG/ML 5ML SYR IV PRN (16:30)
[2017-08-16] MEDS ORDERED: FLUMAZENIL 0.1 MG/1 ML 10 ML VIAL IV PRN (16:30)
[2017-08-16] MEDS ORDERED: ATROPINE SULFATE 0.1 MG/ML 5ML SYR IV PRN (16:30)
[2017-08-16] MEDS ORDERED: HYDROmorphone INJ 2 MG/ML SYR/VIAL IV PRN (16:30)
[2017-08-16] MEDS ORDERED: EpHEDrine SULFATE INJ 50 MG/ML AMP IV PRN (16:30)
[2017-08-16] MEDS ORDERED: MEPERIDINE HCL 25 MG/ML CARP IV PRN (16:30)
[2017-08-16] MEDS ORDERED: NALOXONE HCL 0.4 MG/1 ML VIAL/CARP IV PRN (16:30)
--- NOTE | 2017-08-16 17:16 | [facility] Post Operative Brief Note ---
Immediate Operative Summary Operative Date Aug 16, 2017. Pre-Operative Diagnosis Left lower extremity wound possible fascitis Post-Operative Diagnosis Left lower extremity wound with fasciitis Procedure(s) Performed Debridement of left leg wound 30x10 Surgeon [address] Danielson Director Trial Surgeon(s) Najma Page MD Estimated Blood Loss 30 Findings Consistent with Post-Op Diagnosis Specimens Routine culture and sensitivitiy , anaerobic of left lower leg wound Drains None Anesthesia Type General Complication(s) none Disposition Accompanied Pt To Recover: no Disposition: Recovery Room / PACU
[2017-08-16] MEDS ORDERED: HYDROmorphone INJ 0.5 MG/0.5 ML SYR ONE (17:38)
[2017-08-16] MEDS: FENTANYL CITRATE INJ 50 MCG/1 ML 2 ML VIAL IV PRN ×2 (17:40→17:45)
--- NOTE | 2017-08-16 18:17 | Anesthesiology Progress Note ---
Anesthesia Post Op Note Date & Time Aug 16, 2017 at 18:17 Vital Signs Pain Intensity: 1 Vital Signs Past 12 Hours Date Time Temp Pulse Resp B/P (MAP) Pulse Ox O2 Delivery O2 Flow Rate FiO2 08/16/17 18:10 88 18 131/84 92 Nasal Cannula 4 08/16/17 18:05 36.5 85 18 129/89 92 Nasal Cannula 4 08/16/17 18:00 88 18 138/91 92 Oxymask 4 08/16/17 17:55 86 20 143/92 94 Oxymask 10 08/16/17 17:50 91 20 163/97 92 Oxymask 10 08/16/17 17:40 99 20 153/97 95 Oxymask 15 08/16/17 17:31 36.6 101 22 164/101 95 Oxymask 15 08/16/17 16:35 37.3 101 16 166/99 (121) 94 Room Air 08/16/17 15:43 37.0 95 18 127/78 (94) 94 Room Air 08/16/17 08:15 92 Room Air 08/16/17 07:23 36.9 102 16 119/79 (92) 92 Room Air Notes Mental Status: alert / awake / arousable, participated in evaluation Pt Amnestic to Procedure: Yes Nausea / Vomiting: adequately controlled Pain: adequately controlled Airway Patency, RR, SpO2: stable & adequate BP & HR: stable & adequate Hydration State: stable & adequate Anesthetic Complications: no major complications apparent The patient was given a dose of labetalol in PACU. She is awake and her vitals are stable.
--- NOTE | 2017-08-16 18:32 | OPERATIVE REPORT ---
DATE OF OPERATION: 08/16/2017 PREOPERATIVE DIAGNOSIS: Left lower extremity wound, abscess, possible fasciitis. POSTOPERATIVE DIAGNOSIS: Left lower extremity wound, abscess, with fasciitis. PROCEDURE: Debridement of left leg wound 10 x 30 cm. SURGEON: Dr. Jorgito Danielson. [employer] SYSTEMS: Dr. Najma Page. ANESTHESIA: General endotracheal anesthesia. ESTIMATED BLOOD LOSS: 30 mL SPECIMEN: Aerobic and anaerobic cultures of left leg wound. COMPLICATIONS: None. INDICATIONS: Mrs. Merry Starkey is a 52-year-old woman with a new diagnosis of diabetes with a left lower extremity wound. The patient states that she struck her left leg while at home several weeks ago. She has been treating it with vinegar without success. The wound progressed to the point where there was exposed tendon in the base of the wound. On examination, she had purulent drainage from the superior aspect of the wound. For this reason, she was recommended to undergo wound debridement. The risks, benefits and alternatives were discussed with the patient and she consented to the procedure. DESCRIPTION OF PROCEDURE: The patient was taken to the operating room and placed in supine position. The left leg was prepped and draped in the usual sterile fashion. Safety timeout was performed, and the patient, procedure and sidedness were correctly identified. Prior to debridement, the wound measured approximately 6 x 8 cm with exposed 3 cm of desiccated tendon. We began our debridement by incising the tissue from the superior aspect of the wound extending proximally for a total of 30 cm. Tissue was significantly edematous with purulent drainage. Further assessment of the wound allowed expression of purulent drainage from the anterior compartment. A second incision was made 4 cm anterior and parallel to the previous incision. This was extended proximally for about 20 cm. There was significant purulent drainage from the anterior compartment in this area. The 2 incisions were connected and the overlying skin which was devitalized, was removed. The underlying muscle appeared pink and contractile. The desiccated tendon was excised using Bovie electrocautery. Small areas of eschar within the wound base were debrided with sharp excision. Small areas of bleeding were cauterized. The wound was irrigated with a liter of saline. Xeroform, 4 x 4's, ABD and sterile Kerlix followed by an Christian wrap were applied to the wound. The patient was awakened from anesthesia. She tolerated the procedure well and there were no immediate complications. Dr. Jorgito Danielson was present for the entire procedure. I attest to the content of the Intraoperative Record and any orders documented therein. Any exception s are noted below.
[2017-08-16] MEDS: OXYCODONE/ACETAMINOPHEN 5-325 TAB PO PRN ×2 (18:55→23:53)
[2017-08-16] MEDS: INSULIN GLARGINE SOLOSTAR 100 UNITS/ML 3 ML PEN SC SCH (21:24)
[2017-08-17] MEDS: CEFEPIME IV 2,000 MG in SYRINGE 7.5 ML IV SCH ×3 (01:49→18:49)
[2017-08-17] MEDS: NSS + 20MEQ KCL 1000ML 1,000 ML IV SCH ×2 (01:49→12:55)
[2017-08-17] MEDS ORDERED: INSULIN ASPART 100 UNITS/ML 3 ML PEN SC SCH (02:00)
[2017-08-17] MEDS: OXYCODONE HCL IR 5 MG TAB (IMMEDIATE RELEASE) PO PRN ×2 (02:34→23:36)
[2017-08-17 03:52] VITALS: BP 139/91; PULSE 98; TEMP 36.9; O2SAT 93
[2017-08-17] MEDS: CLINDAMYCIN IV 900 MG in DEXTROSE 5% 100ML 100 ML IV SCH ×3 (03:52→20:31)
[2017-08-17] MEDS: OXYCODONE/ACETAMINOPHEN 5-325 TAB PO PRN ×3 (06:13→14:34)
[2017-08-17 07:44] VITALS: BP 126/84; PULSE 94; TEMP 36.8; O2SAT 93
[2017-08-17 07:46] LABS: BASO % 0.1 %; BASO ABS # 0.01 K/uL (0-0.2); EOS % 0.9 %; EOS ABS # 0.15 K/uL (0-0.5); HEMATOCRIT 38.8 % (37-47); HEMOGLOBIN 13.4 g/dL (12.0-16.0); IG# 0.12 K/uL (0.00-0.02); LYMPH % 10.2 %; LYMPH ABS # 1.64 K/uL (1.2-3.4); MEAN CELL VOLUME 91.3 fL (80-100); MEAN CORPUSCULAR HEMOGLOBIN 31.5 pg (25-34); MEAN CORPUSCULAR HGB CONC 34.5 g/dl (32-36); MEAN PLATELET VOLUME 10.4 fL (7.4-10.4); MONO % 7.1 %; MONO ABS # 1.15 K/uL (0.11-0.59); NEUT ABS # 13.03 K/uL (1.4-6.5); PLATELET COUNT 355 K/uL (130-400); RED CELL DISTRIBUTION WIDTH CV 12.4 % (11.5-14.5); RED CELL DISTRIBUTION WIDTH SD 41.7 fL (36.4-46.3)
[2017-08-17 08:15] LABS: CALCIUM 8.7 mg/dl (8.5-10.1); CREATININE 0.57 mg/dl (0.60-1.20); POTASSIUM 3.8 mmol/L (3.5-5.1)
--- NOTE | 2017-08-17 08:40 | Anesthesiology Progress Note ---
Anesthesia Post Op Note Date & Time Aug 17, 2017 at 08:40 Vital Signs Pain Intensity: 1.0 Vital Signs Past 12 Hours Date Time Temp Pulse Resp B/P (MAP) Pulse Ox O2 Delivery O2 Flow Rate FiO2 08/17/17 07:44 36.8 94 16 126/84 (98) 93 Room Air 08/17/17 07:28 Room Air 08/17/17 03:52 36.9 98 16 139/91 (107) 93 Room Air 08/16/17 23:55 95 Nasal Cannula 1.0 08/16/17 23:05 37.0 91 16 127/85 (99) 95 Nasal Cannula 1.0 08/16/17 21:34 92 Nasal Cannula 2.0 08/16/17 21:31 36.9 94 18 134/86 (102) 89 Room Air Notes Mental Status: alert / awake / arousable Pt Amnestic to Procedure: Yes Nausea / Vomiting: adequately controlled Pain: adequately controlled Airway Patency, RR, SpO2: stable & adequate BP & HR: stable & adequate Hydration State: stable & adequate Anesthetic Complications: no major complications apparent
--- NOTE | 2017-08-17 08:50 | Progress Note ---
Subjective Date of Service: Aug 17, 2017. Subjective this pt has some lateral left ankle pain but was up and ambulating in the halls today is getting more comfortable with sc injections for dm and will need wound vac before d/c Problem List Medical Problems: (1) Non-healing wound of lower extremity Status: Acute Review of Systems Constitutional: + fatigue, No fever, No chills, No weakness Eyes: No worsening of vision, No eye pain Respiratory: No cough, No shortness of breath Cardiac: No chest pain, No edema Abdomen: No pain, No nausea, No vomiting, No diarrhea Musculoskeletal: + joint pain, + muscle pain Neurologic: No memory loss, No weakness Psychiatric: No depression symptoms, No anxiety Objective Vital Signs Date Time Temp Pulse Resp B/P (MAP) Pulse Ox O2 Delivery O2 Flow Rate FiO2 08/17/17 07:44 36.8 94 16 126/84 (98) 93 Room Air 08/17/17 07:28 Room Air 08/17/17 03:52 36.9 98 16 139/91 (107) 93 Room Air 08/16/17 23:55 95 Nasal Cannula 1.0 08/16/17 23:05 37.0 91 16 127/85 (99) 95 Nasal Cannula 1.0 08/16/17 21:34 92 Nasal Cannula 2.0 08/16/17 21:31 36.9 94 18 134/86 (102) 89 Room Air 08/16/17 20:25 37.1 96 16 126/85 (99) 96 Nasal Cannula 2.0 08/16/17 18:55 36.6 89 20 135/86 (102) 96 Nasal Cannula 4.0 08/16/17 18:25 37.0 89 18 124/82 (96) 94 Nasal Cannula 4.0 08/16/17 18:25 Nasal Cannula 4.0 08/16/17 18:25 Nasal Cannula 4.0 08/16/17 18:10 88 18 131/84 92 Nasal Cannula 4 08/16/17 18:05 36.5 85 18 129/89 92 Nasal Cannula 4 08/16/17 18:00 88 18 138/91 92 Oxymask 4 08/16/17 17:55 86 20 143/92 94 Oxymask 10 08/16/17 17:50 91 20 163/97 92 Oxymask 10 2/12/18 17:40 99 20 153/97 95 Oxymask 15 08/16/17 17:31 36.6 101 22 164/101 95 Oxymask 15 08/16/17 16:35 37.3 101 16 166/99 (121) 94 Room Air 08/16/17 15:43 37.0 95 18 127/78 (94) 94 Room Air Physical Exam General Appearance: WD/WN, + mild distress, + obese Eyes: normal inspection, sclerae normal Neck: supple Respiratory/Chest: chest non-tender, lungs clear, normal breath sounds Cardiovascular: regular rate, rhythm, no murmur Abdomen: normal bowel sounds, non tender, soft Extremities: + swelling, + pertinent finding (has dressing in place to left distal leg) Neurologic/Psychiatric: alert, oriented x 3 Laboratory Results Last 24 Hours Test 08/16/17 12:06 08/16/17 16:27 08/16/17 17:55 08/16/17 20:40 Bedside Glucose 228 mg/dl 180 mg/dl 211 mg/dl 332 mg/dl Test 08/17/17 01:55 08/17/17 07:07 Bedside Glucose 214 mg/dl White Blood Count 16.10 K/uL Red Blood Count 4.25 M/uL Hemoglobin 13.4 g/dL Hematocrit 38.8 % Mean Corpuscular Volume 91.3 fL Mean Corpuscular Hemoglobin 31.5 pg Mean Corpuscular Hemoglobin Concent 34.5 g/dl Platelet Count 355 K/uL Mean Platelet Volume 10.4 fL Neutrophils (%) (Auto) 81.0 % Lymphocytes (%) (Auto) 10.2 % Monocytes (%) (Auto) 7.1 % Eosinophils (%) (Auto) 0.9 % Basophils (%) (Auto) 0.1 % Neutrophils # (Auto) 13.03 K/uL Lymphocytes # (Auto) 1.64 K/uL Monocytes # (Auto) 1.15 K/uL Eosinophils # (Auto) 0.15 K/uL Basophils # (Auto) 0.01 K/uL RDW Standard Deviation 41.7 fL RDW Coefficient of Variation 12.4 % Immature Granulocyte % (Auto) 0.7 % Immature Granulocyte # (Auto) 0.12 K/uL Sodium Level 134 mmol/L Potassium Level 3.8 mmol/L Chloride Level 101 mmol/L Carbon Dioxide Level 23 mmol/L Anion Gap 10.0 mmol/L Blood Urea Nitrogen 15 mg/dl Creatinine 0.57 mg/dl Est Creatinine Clear Calc Drug Dose 115.8 ml/min Estimated GFR () 121.8 Estimated GFR (Non- 105.1 BUN/Creatinine Ratio 26.8 Random Glucose 218 mg/dl Calcium Level 8.7 mg/dl Triglycerides Level 86 mg/dl Cholesterol Level 117 mg/dl HDL Cholesterol 36 mg/dl LDL Cholesterol, Calculated 64 mg/dl VLDL Cholesterol, Calculated 17 mg/dl Cholesterol/HDL Ratio 3.3 Assessment and Plan 52 yo F presents with left lower leg wound with exposed tendon, infection and undiagnosed and uncontrolled diabetes Left Lower extremity wounds/p surgical clean out and debridement, IV clindamycin and cefepime has cultures with serratia and gram negative yet to be identified, has need for wound vac prior to discharge PAD Arterial occlusion, multiple areas suggested on arterial Doppler affecting wound healing Dr Danielson is on consult, will address wound first Newly diagnosed DM II lantus and ISS with accuchecks for now, will transition to 70/30 due to financial constraints plus metformin - Diabetic consultation and education ongoing Hx of Smoking - Quit 2 months ago, 20 years x 1ppd. continue to reinforce Obesity impacts lower extremity healing and diabetic control adversely - Diet and exercise will be discussed prior to discharge from the hospital. DVT ppx: lovenox, teds, scds on nonaffected leg CODE STATUS: FULL
--- NOTE | 2017-08-17 09:06 | Pharmacy Progress Note ---
Glycemic Control Intl Consult Date of Service Aug 17, 2017. Scope Glycemic Pharmacist consulted by Dr Wilson on 08/16/17 for glycemic control and to write orders per [facility] inpatient glycemic control protocol Objective Weight (Kilograms): 84.000 Accuchecks BSG (last 24hrs): Test 08/16/17 12:06 08/16/17 16:27 08/16/17 17:55 08/16/17 20:40 Bedside Glucose 228 mg/dl (70-90) 180 mg/dl (70-90) 211 mg/dl (70-90) 332 mg/dl (70-90) Test 08/17/17 01:55 08/17/17 07:07 Bedside Glucose 214 mg/dl (70-90) Random Glucose 218 mg/dl (70-99) Laboratory Data (last 24hrs) Test 08/17/17 07:07 Anion Gap 10.0 mmol/L BUN/Creatinine Ratio 26.8 Blood Urea Nitrogen 15 mg/dl Creatinine 0.57 mg/dl Potassium Level 3.8 mmol/L Sodium Level 134 mmol/L White Blood Count 16.10 K/uL Red Blood Count 4.25 M/uL Hemoglobin 13.4 g/dL Hematocrit 38.8 % Mean Corpuscular Volume 91.3 fL Mean Corpuscular Hemoglobin 31.5 pg Mean Corpuscular Hemoglobin Concent 34.5 g/dl Platelet Count 355 K/uL Mean Platelet Volume 10.4 fL Neutrophils (%) (Auto) 81.0 % Lymphocytes (%) (Auto) 10.2 % Monocytes (%) (Auto) 7.1 % Eosinophils (%) (Auto) 0.9 % Basophils (%) (Auto) 0.1 % Neutrophils # (Auto) 13.03 K/uL Lymphocytes # (Auto) 1.64 K/uL Monocytes # (Auto) 1.15 K/uL Eosinophils # (Auto) 0.15 K/uL Basophils # (Auto) 0.01 K/uL HbA1c Test 08/15/17 11:00 Hemoglobin A1c 13.4 % (4.5-5.6) H Recent Pertinent Medications Outpatient Anti-diabetic Regimen: * N/A - new diagnosis The patient is currently receiving: * Basal insulin: Lantus 14-25 units every 12 hours based on BSG * Correctional Insulin: Novolog Correction per scale ACHS Goal Range: Low 120 mg/dL - High 150 mg/dL Correction Factor: 20 mg/dL/unit * Prandial insulin: Per carb ratio of 1 unit per 7 grams CHO consumed Risk Factors for Insulin Resistance: * Steroids: received DXM 4mg IV x 1 in OR/PACU * Infection * Recent Surgery * Diet Assessment & Plan ASSESSMENT: * 52yo female - new diagnosis of diabetes per A1c of 13.4% on 08/15/17 * Pt initiated on moderate stress/weight based insulin regimen on admission for severe hyperglycemia. Hyperglycemia not improving despite 2 doses of Lantus (20 units & 14 units) & 4 doses of NovoLog (6, 7, 13, 4 units) therefore, regimen titrated upwards last evening to high stress and weight. * Patient has received 81 units of Sq insulin over the past 24hrs * 39 units of basal insulin with Lantus (14 units in AM + 25 units in PM on ) * 42 units of prandial/correctional insulin with NovoLog * BSGs 08/16: 286, 228, 211, 332 * BSGs 08/17: 214 * Goal BSG range is <150 mg/dl to promote wound healing. All BSGs are above goal range. * Increase in total daily dose is needed for better control. Will increase total daily dose by 20% and change regimen to Sq basal bolus based on estimated total daily dose of ~ 100 units/day PLAN FOR INPATIENT GLYCEMIC CONTROL: * Basal insulin * Lantus 25 units SQ BID * Bolus insulin * NovoLog per scale ACHS or Q6hrs while NPO * Goal Range: Low 120 mg/dL - High 150 mg/dL * Correction Factor: 15 mg/dL/unit * Nutritional / Prandial insulin per carb ratio of 1 unit per 5 grams CHO consumed Considerations for discharge planning: * A1c = 13.4% * Pt will need metformin + combination injection therapy to achieve goal A1c of <7% * Will keep regimen simple and inexpensive {relatively} as possible * Considered changing inpatient Lantus to once daily dosing for easy transition to outpatient. However, patient does not have insurance and therefore inexpensive insulin is needed at discharge. The least expensive insulin is [employer] brand ReliON. Can consider ReliON 70/30 premixed insulin which would be given BID at discharge. Therefore, will keep Lantus BID for inpatient dosing. If patient tolerates PO well today, may consider initiating metformin as well. Will discuss with provider. * Please note that the plan above was derived based on current level of insulin resistance and hospital stress. These recommendations are appropriate for inpatient admission only. Plan of care upon discharge will need to be reassessed to avoid potential outpatient hypo/hyperglycemia. Thank you.
[2017-08-17] MEDS: INSULIN ASPART 100 UNITS/ML 3 ML PEN SC SCH ×4 (10:07→20:50)
[2017-08-17] MEDS: INSULIN GLARGINE SOLOSTAR 100 UNITS/ML 3 ML PEN SC SCH (10:07)
[2017-08-17] MEDS: OMEGA-3 (PURIFIED FISH OIL) 1 GM CAP PO SCH (10:10)
[2017-08-17] MEDS: CHOLECALCIFEROL 1000 INTER.UNIT TAB PO SCH (10:10)
[2017-08-17] MEDS: ENOXAPARIN 30 MG/0.3 ML SYR SQ SCH ×2 (10:11→20:32)
[2017-08-17 12:50] VITALS: BP 136/85; PULSE 102; TEMP 36.9; O2SAT 93
[2017-08-17 13:29] VITALS: BMI 32.8
[2017-08-17 14:58] VITALS: BP 147/89; PULSE 116; TEMP 37.3; O2SAT 91
[2017-08-17] MEDS ORDERED: NURSING VERBAL MED ORDER ONE (15:15)
--- NOTE | 2017-08-17 15:15 | Progress Note ---
Progress Note Date of Service: Aug 17, 2017. Subjective 52 yo f with DMII, POD #1 after LLE debridement by Dr Danielson, seen in f/u today. Pt states pain is tolerable with medications, has ambulated in hallway with walker. Denies any other new complaints. Problem List Medical Problems: (1) Non-healing wound of lower extremity Status: Acute Objective Vital Signs Vital Signs Past 12 Hours Date Time Temp Pulse Resp B/P (MAP) Pulse Ox O2 Delivery O2 Flow Rate FiO2 08/17/17 14:58 37.3 116 20 147/89 (108) 91 Room Air 08/17/17 12:50 36.9 102 18 136/85 (102) 93 Room Air 08/17/17 07:44 36.8 94 16 126/84 (98) 93 Room Air 08/17/17 07:28 Room Air 08/17/17 03:52 36.9 98 16 139/91 (107) 93 Room Air Exam CONST: A&O x3, NAD, generally healthy appearing female EXT: LLE wound dressed, not removed today, toes with good cap refill. Intake & Output 8-Hour Column 08/17/17 08/18/17 08/18/17 16:00 00:00 08:00 Intake Total 1393 ml Output Total 800 ml Balance 593 ml 24-Hour Column 08/18/17 08:00 Intake Total 1393 ml Output Total 800 ml Balance 593 ml Laboratory and Microbiology Results Past 24 Hours Test 08/16/17 16:27 08/16/17 17:55 08/16/17 20:40 08/17/17 01:55 Range/Units Bedside Glucose 180 211 332 214 70-90 mg/dl Test 08/17/17 07:07 Range/Units White Blood Count 16.10 4.8-10.8 K/uL Red Blood Count 4.25 4.2-5.4 M/uL Hemoglobin 13.4 12.0-16.0 g/dL Hematocrit 38.8 37-47 % Mean Corpuscular Volume 91.3 80-100 fL Mean Corpuscular Hemoglobin 31.5 25-34 pg Mean Corpuscular Hemoglobin Concent 34.5 32-36 g/dl Platelet Count 355 130-400 K/uL Mean Platelet Volume 10.4 7.4-10.4 fL Neutrophils (%) (Auto) 81.0 % Lymphocytes (%) (Auto) 10.2 % Monocytes (%) (Auto) 7.1 % Eosinophils (%) (Auto) 0.9 % Basophils (%) (Auto) 0.1 % Neutrophils # (Auto) 13.03 1.4-6.5 K/uL Lymphocytes # (Auto) 1.64 1.2-3.4 K/uL Monocytes # (Auto) 1.15 0.11-0.59 K/uL Eosinophils # (Auto) 0.15 0-0.5 K/uL Basophils # (Auto) 0.01 0-0.2 K/uL RDW Standard Deviation 41.7 36.4-46.3 fL RDW Coefficient of Variation 12.4 11.5-14.5 % Immature Granulocyte % (Auto) 0.7 % Immature Granulocyte # (Auto) 0.12 0.00-0.02 K/uL Sodium Level 134 136-145 mmol/L Potassium Level 3.8 3.5-5.1 mmol/L Chloride Level 101 98-107 mmol/L Carbon Dioxide Level 23 21-32 mmol/L Anion Gap 10.0 3-11 mmol/L Blood Urea Nitrogen 15 7-18 mg/dl Creatinine 0.57 0.60-1.20 mg/dl Est Creatinine Clear Calc Drug Dose 115.8 ml/min Estimated GFR () 121.8 Estimated GFR (Non- 105.1 BUN/Creatinine Ratio 26.8 10-20 Random Glucose 218 70-99 mg/dl Calcium Level 8.7 8.5-10.1 mg/dl Triglycerides Level 86 0-150 mg/dl Cholesterol Level 117 0-200 mg/dl HDL Cholesterol 36 mg/dl LDL Cholesterol, Calculated 64 mg/dl VLDL Cholesterol, Calculated 17 mg/dl Cholesterol/HDL Ratio 3.3 ASSESSMENT and PLAN: s/p LLE wound/fascia debridement LLE fasciitis Pt doing well post op. Continue abx per medicine. Will order wound vac placement for tomorrow.
[2017-08-17] MEDS: ACETAMINOPHEN 325 MG TAB PO PRN (16:39)
[2017-08-17] MEDS ORDERED: OXYCODONE HCL IR 5 MG TAB (IMMEDIATE RELEASE) PO ONE (16:45)
[2017-08-17] MEDS ORDERED: INSULIN HUMAN 70% NPH/30% REGULAR SC SCH (17:45)
[2017-08-17] MEDS: METFORMIN HCL 500 MG TABCR PO SCH (18:36)
[2017-08-17] MEDS: MoRPHine SULFATE 2 MG/ML CARP IV PRN (21:03)
[2017-08-17 22:57] VITALS: BP 123/79; PULSE 113; TEMP 37; O2SAT 90
[2017-08-18] MEDS: CEFEPIME IV 2,000 MG in SYRINGE 7.5 ML IV SCH ×3 (01:33→18:39)
[2017-08-18] MEDS: CLINDAMYCIN IV 900 MG in DEXTROSE 5% 100ML 100 ML IV SCH ×2 (04:11→11:53)
[2017-08-18 06:11] VITALS: PULSE 105
[2017-08-18 07:30] VITALS: BP 153/95; PULSE 111; TEMP 37.2; O2SAT 90
[2017-08-18] MEDS: OXYCODONE HCL IR 5 MG TAB (IMMEDIATE RELEASE) PO PRN ×4 (07:49→19:45)
[2017-08-18] MEDS: INSULIN ASPART 100 UNITS/ML 3 ML PEN SC SCH ×4 (08:00→20:48)
[2017-08-18 09:07] LABS: BASO % 0.2 %; BASO ABS # 0.03 K/uL (0-0.2); EOS % 0.7 %; EOS ABS # 0.11 K/uL (0-0.5); HEMATOCRIT 38.3 % (37-47); HEMOGLOBIN 13.3 g/dL (12.0-16.0); IG# 0.11 K/uL (0.00-0.02); LYMPH % 12.7 %; LYMPH ABS # 2.13 K/uL (1.2-3.4); MEAN CELL VOLUME 90.3 fL (80-100); MEAN CORPUSCULAR HEMOGLOBIN 31.4 pg (25-34); MEAN CORPUSCULAR HGB CONC 34.7 g/dl (32-36); MEAN PLATELET VOLUME 10.1 fL (7.4-10.4); MONO ABS # 1.17 K/uL (0.11-0.59); NEUT % 78.7 %; NEUT ABS # 13.17 K/uL (1.4-6.5); PLATELET COUNT 386 K/uL (130-400); RED CELL DISTRIBUTION WIDTH CV 12.5 % (11.5-14.5); RED CELL DISTRIBUTION WIDTH SD 41.3 fL (36.4-46.3); WHITE BLOOD COUNT 16.72 K/uL (4.8-10.8)
[2017-08-18] MEDS: CHOLECALCIFEROL 1000 INTER.UNIT TAB PO SCH (09:20)
[2017-08-18] MEDS: OMEGA-3 (PURIFIED FISH OIL) 1 GM CAP PO SCH (09:20)
[2017-08-18] MEDS: ENOXAPARIN 30 MG/0.3 ML SYR SQ SCH ×2 (09:21→20:49)
[2017-08-18] MEDS: INSULIN HUMAN 70% NPH/30% REGULAR SC SCH ×2 (09:27→18:35)
[2017-08-18 09:35] LABS: CREATININE 0.5 mg/dl (0.60-1.20)
[2017-08-18] MEDS: MoRPHine SULFATE 2 MG/ML CARP IV PRN ×3 (11:55→22:51)
--- NOTE | 2017-08-18 12:21 | Pharmacy Progress Note ---
Pharmacy Glycemic Short Note 2 Date of Service Aug 18, 2017. ASSESSMENT: * 52yo female - new diagnosis of diabetes per A1c of 13.4% on 08/15/17 * Pt initiated on Sq basal bolus insulin regimen 08/15/17 PM with Lantus + NovoLog. Regimen changed to Novolin 70/30 + metformin last evening to prepare for discharge. * Patient has received 81 units of Sq insulin on 08/16 and 112 units on 08/17. Estimate that total daily dose needed will be about 90 units/day with metformin. * BSGs 08/16: 286, 228, 211, 332 * BSGs 08/17: 201, 214, 121, 129 * BSGs 08/18: 117, 133 * Goal BSG range is <150 mg/dl to promote wound healing. BSGs are now goal range that insulin is at steady state. * No changes needed today. Continue sq insulin regimen of estimated total daily dose ~90 units/day plus metformin. PLAN FOR INPATIENT GLYCEMIC CONTROL: * Metformin XR 500mg PO daily with dinner * Basal/Bolus insulin * Novolin 70/30 premixed insulin 60 units in the morning with breakfast + 30 units in the evening with dinner * Correctional insulin with NovoLog ACHS if BSG > 150 mg/dl * Per goal range 120 -150 mg/dl * CF = 30 mg/dl/unit Considerations for discharge planning: * A1c = 13.4% * Pt will need metformin + combination injection therapy to achieve goal A1c of <7% * Will keep regimen simple and inexpensive {relatively} as possible, therefore, will use [employer] brand ReliON premixed NPH/Regular BIDM (estimated total daily dose of ~90 units/day since we are starting metformin as well) * Premixed 70/30 insulin 60 units in the morning with breakfast + 30 units in the evening with dinner * Start metformin: * Started metformin XR 500mg PO daily with evening meal in house on 08/17/17. Typically, the XR formulation of metformin is better tolerated with less GI effects. Will need to continue to titrate metformin dosing upwards as an outpatient. Dosage increases should be made in increments of 500 mg weekly, up to 2,000 mg/day PO, given in divided doses. Doses above 2000 mg/day may be better tolerated if divided and given 3 times per day with meals. Max: 2,550 mg/ day PO, in divided doses
[2017-08-18 15:32] VITALS: BMI 32.8
[2017-08-18 15:42] VITALS: BP 153/91; PULSE 107; TEMP 37.1; O2SAT 94
--- NOTE | 2017-08-18 18:07 | Progress Note ---
Subjective Date of Service: Aug 18, 2017. Subjective Patient is having some pain with dressing changes she's also concerned about the cost of her wound VAC and overall medical care she has no health insurance. She wound VAC placed on 08/18 were dealing with her diabetes and she is learning how to self inject we may need to use 70/30 insulin due to cost constraints Problem List Medical Problems: (1) Non-healing wound of lower extremity Status: Acute Review of Systems Constitutional: No fever, No chills, No sweats Respiratory: No cough, No wheezing, No shortness of breath Cardiac: No chest pain, No edema Abdomen: No pain, No nausea, No vomiting, No diarrhea Musculoskeletal: + joint pain, + muscle pain, + swelling Psychiatric: + depression symptoms, No anhedonism, No anxiety Objective Vital Signs Date Time Temp Pulse Resp B/P (MAP) Pulse Ox O2 Delivery O2 Flow Rate FiO2 08/18/17 15:42 37.1 107 18 153/91 (111) 94 Room Air 08/18/17 07:50 Room Air 08/18/17 07:30 37.2 111 16 153/95 (114) 90 Room Air 08/18/17 06:11 105 08/17/17 23:35 Room Air 08/17/17 22:57 37.0 113 18 123/79 (94) 90 Room Air Physical Exam General Appearance: WD/WN, + mild distress Eyes: normal inspection, sclerae normal Respiratory/Chest: chest non-tender, lungs clear, normal breath sounds Cardiovascular: regular rate, rhythm, no murmur Abdomen: normal bowel sounds, non tender, soft Extremities: + pedal edema, + pertinent finding (large left leg lateral leg wound ) Neurologic/Psychiatric: alert, oriented x 3 Laboratory Results Last 24 Hours Test 08/17/17 20:50 08/18/17 08:09 08/18/17 08:38 08/18/17 17:13 Bedside Glucose 129 mg/dl 117 mg/dl 105 mg/dl White Blood Count 16.72 K/uL Red Blood Count 4.24 M/uL Hemoglobin 13.3 g/dL Hematocrit 38.3 % Mean Corpuscular Volume 90.3 fL Mean Corpuscular Hemoglobin 31.4 pg Mean Corpuscular Hemoglobin Concent 34.7 g/dl Platelet Count 386 K/uL Mean Platelet Volume 10.1 fL Neutrophils (%) (Auto) 78.7 % Lymphocytes (%) (Auto) 12.7 % Monocytes (%) (Auto) 7.0 % Eosinophils (%) (Auto) 0.7 % Basophils (%) (Auto) 0.2 % Neutrophils # (Auto) 13.17 K/uL Lymphocytes # (Auto) 2.13 K/uL Monocytes # (Auto) 1.17 K/uL Eosinophils # (Auto) 0.11 K/uL Basophils # (Auto) 0.03 K/uL RDW Standard Deviation 41.3 fL RDW Coefficient of Variation 12.5 % Immature Granulocyte % (Auto) 0.7 % Immature Granulocyte # (Auto) 0.11 K/uL Creatinine 0.50 mg/dl Est Creatinine Clear Calc Drug Dose 132.0 ml/min Estimated GFR () 127.2 Estimated GFR (Non- 109.7 Assessment and Plan 52 yo F presents with left lower leg wound with exposed tendon, infection and undiagnosed and uncontrolled diabetes Left Lower extremity wounds/p surgical clean out and debridement, IV cefepime has cultures with serratia and gram negative yet to be identified, wound vac placed 08/18 PAD Arterial occlusion, multiple areas suggested on arterial Doppler affecting wound healing Dr Danielson is on consult Newly diagnosed DM II ISS with accuchecks and transitioned to 70/30 due to financial constraints plus metformin - Diabetic consultation and education ongoing, pt still has not used self injection reliably Hx of Smoking - Quit 2 months ago, 20 years x 1ppd. continue to reinforce Obesity impacts lower extremity healing and diabetic control adversely - Diet and exercise will be discussed prior to discharge from the hospital. DVT ppx: lovenox, teds, scds on nonaffected leg CODE STATUS: FULL
[2017-08-18] MEDS: METFORMIN HCL 500 MG TABCR PO SCH (18:29)
[2017-08-18 22:37] VITALS: BP 150/89; PULSE 100; TEMP 37; O2SAT 92
[2017-08-19] MEDS: CEFEPIME IV 2,000 MG in SYRINGE 7.5 ML IV SCH ×3 (01:55→18:48)
[2017-08-19] MEDS: OXYCODONE HCL IR 5 MG TAB (IMMEDIATE RELEASE) PO PRN ×4 (02:04→21:54)
[2017-08-19 07:20] VITALS: BP 136/91; PULSE 86; TEMP 36.9; O2SAT 93
[2017-08-19] MEDS: INSULIN ASPART 100 UNITS/ML 3 ML PEN SC SCH ×4 (08:00→20:48)
[2017-08-19] MEDS: CHOLECALCIFEROL 1000 INTER.UNIT TAB PO SCH (08:45)
[2017-08-19] MEDS: OMEGA-3 (PURIFIED FISH OIL) 1 GM CAP PO SCH (08:45)
[2017-08-19] MEDS: ENOXAPARIN 30 MG/0.3 ML SYR SQ SCH ×2 (08:46→20:50)
[2017-08-19] MEDS: INSULIN HUMAN 70% NPH/30% REGULAR SC SCH ×2 (08:55→18:44)
[2017-08-19] MEDS ORDERED: POLYETHYLENE (MIRALAX) 17 GM PACK PO PRN (11:45)
[2017-08-19] MEDS ORDERED: TRAMADOL HCL 50 MG TAB PO PRN (11:45)
[2017-08-19] MEDS ORDERED: BISACODYL 5 MG TABEC PO PRN (11:45)
[2017-08-19 13:32] VITALS: Ht 160 cm; Wt 84.0 kg
[2017-08-19] MEDS ORDERED: SODIUM CHLORIDE 0.65% NA SOLN 45 ML (OCEAN) ONE (13:46)
[2017-08-19] MEDS ORDERED: NURSING DECISION MEDICATION ORDER SCH (14:00)
[2017-08-19] MEDS ORDERED: SODIUM CHLORIDE 0.65% NA SOLN 45 ML (OCEAN) PRN (14:15)
--- NOTE | 2017-08-19 14:49 | Hospitalist Progress Note ---
Hospitalist Progress Note Date of Service Aug 19, 2017. (Selma Balderrama PA-C) Subjective Pt evaluation today including: conversation w/ patient, physical exam, chart review, lab review, review of studies Pain: LLE worsened with ambulation PO Intake: Good Voiding: no voiding problems The patient was seen and examined this morning. Pt reports doing better today than she has been prior to this. She reports her main complaint is pain in the LLE once she is standing on her legs and placing pressure on it. She has been taking pain medication 30 min prior to ambulation. When she is sitting still in bed she has no pain. In regards to DM - she was able to use insulin and give herself the injection with a syringe last night and this morning. She is feeling more comfortable with this now. ROS: 6 point ROS reviewed and otherwise negative. (Selma Balderrama PA-C) Objective Vital Signs Date Time Temp Pulse Resp B/P (MAP) Pulse Ox O2 Delivery O2 Flow Rate FiO2 08/19/17 07:31 Room Air 08/19/17 07:20 36.9 86 16 136/91 (106) 93 Room Air 08/18/17 22:37 37.0 100 18 150/89 (109) 92 Room Air 08/18/17 19:45 Room Air 08/18/17 15:42 37.1 107 18 153/91 (111) 94 Room Air (Selma Balderrama PA-C) Physical Exam General Appearance: WD/WN, no apparent distress, + obese Eyes: PERRL, EOMI ENT: hearing grossly normal, pharynx normal Neck: supple, no JVD Respiratory/Chest: lungs clear, no respiratory distress, no accessory muscle use Cardiovascular: regular rate, rhythm, no murmur Abdomen: normal bowel sounds, non tender, soft Extremities: non-tender, no pedal edema, no calf tenderness, + pertinent finding (LLE with wound vac in place, draining, minimal surrounding erythema, no peripheral edema. ) Neurologic/Psychiatric: alert, normal mood/affect, oriented x 3 (Selma Balderrama PA-C) Laboratory Results Last 24 Hours Test 08/18/17 17:13 08/18/17 20:15 2/15/18 08:21 Bedside Glucose 105 mg/dl 102 mg/dl 100 mg/dl (Selma Balderrama PA-C) Assessment and Plan 52 yo F with PMHx of Left knee surgery, obesity with BMI 32, remote 20 pack year smoking history, quit 2 months ago, but no other known medical history with a left leg wound which she sustained after a metal fence hit her leg approximately 4-6 weeks ago. Left Lower extremity wound s/p surgical clean out and debridement - IV cefepime (started on 08/15), off clindamycin. Wound culture with serratia and gram negative yet to be identified - wound vac placed 08/18 PAD Arterial occlusion, multiple areas suggested on arterial Doppler affecting wound healing Dr Danielson is on consult Newly diagnosed DM II - Elevated Glucose > 400 at time of admission, - A1C= 13.4 - NPH 70/30 per glycemic pharmacy consult - this will be the most affordable mechanism for her as an outpatient considering no insurance. Hx of Smoking - Quit 2 months ago, 20 years x 1ppd. Obesity - Diet and exercise will need to be discussed prior to discharge from the hospital. DVT ppx: lovenox, teds, scds on nonaffected leg CODE STATUS: FULL Disposition: From home, CM to assist with dc planning, applying for MA with wound vac (Selma Balderrama PA-C) PA Physician Supervision Note: I interviewed and examined the patient. Discussed with Selma Balderrama PAC and agree with findings and plan as documented in the note. Any exceptions or clarifications are listed here: None This patient is doing well today she is tolerating her insulin injections in her wound VAC we need to coordinate her home wound VAC in her ability to successfully treat her diabetes with 7030 insulin. Vital signs are stable her leg looks to be in good condition there is a very large wound VAC in place her lower extremity pain is her biggest issue requiring increasing doses of with parenteral and oral pain medication We're awaiting identification of the second gram-negative organism in her wound to take better oral antibiotics at this time Documented By: Cyrus De La O (Cyrus De L aO M.D.)
[2017-08-19 15:29] VITALS: BP 133/85; PULSE 110; TEMP 37.1; O2SAT 94
[2017-08-19] MEDS ORDERED: OXYCODONE HCL IR 5 MG TAB (IMMEDIATE RELEASE) ONE (15:59)
[2017-08-19] MEDS: ACETAMINOPHEN 500 MG TAB PO PRN (17:40)
[2017-08-19] MEDS: METFORMIN HCL 500 MG TABCR PO SCH (17:49)
[2017-08-19 23:15] VITALS: BP 129/80; PULSE 95; TEMP 36.9; O2SAT 94
[2017-08-20] MEDS: ACETAMINOPHEN 500 MG TAB PO PRN ×2 (02:29→13:35)
[2017-08-20] MEDS: CEFEPIME IV 2,000 MG in SYRINGE 7.5 ML IV SCH ×3 (02:30→18:51)
[2017-08-20] MEDS: OXYCODONE HCL IR 5 MG TAB (IMMEDIATE RELEASE) PO PRN ×4 (04:00→22:36)
[2017-08-20 07:37] VITALS: BP 142/92; PULSE 110; TEMP 36.7; O2SAT 94
[2017-08-20 07:57] VITALS: O2SAT 94
[2017-08-20] MEDS: INSULIN ASPART 100 UNITS/ML 3 ML PEN SC SCH ×4 (08:00→22:02)
[2017-08-20] MEDS ORDERED: INSULIN HUMAN 70% NPH/30% REGULAR SC SCH ×2 (08:30→17:45)
--- NOTE | 2017-08-20 08:39 | Hospitalist Progress Note ---
Hospitalist Progress Note Date of Service Aug 20, 2017. (Selma Balderrama PA-C) Subjective Pt evaluation today including: conversation w/ patient, physical exam, chart review, lab review, review of studies Pain: LLE, improving PO Intake: Good Voiding: no voiding problems The patient was seen and examined this morning. Patient reports feeling well. Her pain medication, oxycodone has been increased to 15 mg and she reports this controls her pain much better. She still notes the most pain occurs with ambulation, and is nearly absent whenever she is sitting. The wound VAC is in place, which was changed earlier this morning. Patient reports that vascular is very happy with the way the wound is looking at this time. The patient had a bowel movement yesterday. Discussion was held regarding bowel regimen and she was encouraged to take MiraLAX and stool softeners daily due to increasing narcotic dosage again today. She has some concerns about having too many bowel movements, however she was informed that she can simply refuse the medication if her bowels are moving. ROS: Constitutional: No fever, sweats or chills Eyes: No diplopia, no worsening or blurred vision ENT: normal hearing, no trouble swallowing Respiratory: No cough, sputum, dyspnea at rest or on exertion Cardiovascular: No chest pain, tightness or palpitations Abdomen: No pain, nausea, vomiting, diarrhea or constipation Musculoskeletal: No joint pain, calf pain, swelling -see HPI above. Neurologic: No weakness, numbness/tingling, or balance problems Psychiatric: No anxiety or depression Skin: No rash or itch (Selma Balderrama PA-C) Objective Vital Signs Date Time Temp Pulse Resp B/P (MAP) Pulse Ox O2 Delivery O2 Flow Rate FiO2 08/20/17 07:57 94 Room Air 08/20/17 07:37 36.7 110 18 142/92 (109) 94 Room Air 08/19/17 23:15 36.9 95 18 129/80 (96) 94 Room Air 08/19/17 21:00 Room Air 08/19/17 15:29 37.1 110 18 133/85 (101) 94 Room Air (Selma Balderrama PA-C) Physical Exam Notes: General Appearance: WD/WN, no apparent distress, + obese Eyes: PERRL, EOMI ENT: hearing grossly normal, pharynx normal Neck: supple, no JVD Respiratory/Chest: lungs clear, no respiratory distress, no accessory muscle use Cardiovascular: regular rate, rhythm, no murmur Abdomen: normal bowel sounds, non tender, soft Extremities: non-tender, no pedal edema, no calf tenderness, + pertinent finding (LLE with wound vac in place, draining, minimal surrounding erythema, no peripheral edema. + RLE with faint pitting edema. ) Neurologic/Psychiatric: alert, normal mood/affect, oriented x 3 (Selma Balderrama PA-C) Laboratory Results Last 24 Hours Test 08/19/17 11:46 08/19/17 17:01 08/19/17 20:33 Bedside Glucose 138 mg/dl 91 mg/dl 85 mg/dl (Selma Balderrama PA-C) Assessment and Plan 52 yo F with PMHx of Left knee surgery, obesity with BMI 32, remote 20 pack year smoking history, quit 2 months ago, but no other known medical history with a left leg wound which she sustained after a metal fence hit her leg approximately 4-6 weeks ago. Left Lower extremity wound s/p surgical clean out and debridement - Continue IV cefepime (started on 08/15), off clindamycin. - Wound culture with serratia marcescens, group B beta strep, staph aureus, Morganella morganii: All sensitive to antibiotic as above - Wound culture also growing Sabi albicans - will start fluconazole 100 mg IV daily today - wound vac placed 08/18 -was changed earlier this morning - Pain control: oxycodone 15 mg Q6H prn, added fentanyl patch 25 mcg to optimize pain relief. PAD Arterial occlusion - multiple areas suggested on arterial Doppler affecting wound healing - Dr Danielson is on consult Newly diagnosed DM II - Elevated Glucose > 400 at time of admission, - A1C= 13.4 - NPH 70/30 - this will be the most affordable mechanism for her as an outpatient considering no insurance. Have reduced this mornings dosage to 45 U since glucose last night was in 80s and this morning is ~ 100. Glycemic pharmacy signed off. Our team can manage dosing at this time. Hx of Smoking - Quit 2 months ago, 20 years x 1ppd. Obesity - Diet and exercise will need to be discussed prior to discharge from the hospital. DVT ppx: lovenox, teds, scds on nonaffected leg CODE STATUS: FULL Disposition: From home, CM to assist with dc planning, applying for MA with wound vac The patient may be able to go home with wet-to-dry dressings and then be able to have the wound VAC applied by home health pending MA approval. (Selma Balderrama, JAME) i personally examined pt and verified all jason points roshan Balderrama PAC ~45mins face to face in discussion/education/answering questions no new complaitns, discussed DM pathophys and management, insulin pharmacology, diet, etc vitals noted nad breathing unlabored no pallor or icterus new / uncontrolled DM - continue insulins titration DM wound infection - wound vac, doing better home once above arranged to be able to be done at home (Gasper Veronica D.O.)
--- NOTE | 2017-08-20 10:06 | Progress Note ---
Progress Note Date of Service: Aug 20, 2017. Subjective 52yo f admitted with new onset DMII and LLE wound, POD #4 after LLE debridement , seen in f/u today. Pt states pain difficult to control. Denies any other new complaints. Problem List Medical Problems: (1) Non-healing wound of lower extremity Status: Acute Objective Vital Signs Vital Signs Past 12 Hours Date Time Temp Pulse Resp B/P (MAP) Pulse Ox O2 Delivery O2 Flow Rate FiO2 08/20/17 07:57 94 Room Air 08/20/17 07:37 36.7 110 18 142/92 (109) 94 Room Air 08/19/17 23:15 36.9 95 18 129/80 (96) 94 Room Air Exam CONST: A&O x3, NAD, generally healthy appearing female EST: LLE lateral leg with large open wound, good granulation at edges. No significant bleeding. + tenderness. No other discharge noted. Edema improved. Laboratory and Microbiology Results Past 24 Hours Test 08/19/17 11:46 08/19/17 17:01 08/19/17 20:33 08/20/17 08:39 Range/Units Bedside Glucose 138 91 85 106 70-90 mg/dl ASSESSMENT and PLAN: s/p LLE wound debridement Fasciitis LLE Pt doing well post op. Ok for d/c home from vascular standpoint with home nursing for wound vac changes. Will also need f/u at [facility] for wound care. Will see in office in 2-4 weeks. Abx per medicine.
[2017-08-20] MEDS: OMEGA-3 (PURIFIED FISH OIL) 1 GM CAP PO SCH (10:08)
[2017-08-20] MEDS: CHOLECALCIFEROL 1000 INTER.UNIT TAB PO SCH (10:09)
[2017-08-20] MEDS: ENOXAPARIN 30 MG/0.3 ML SYR SQ SCH ×2 (10:09→22:04)
[2017-08-20] MEDS: INSULIN HUMAN 70% NPH/30% REGULAR SC SCH (11:02)
[2017-08-20] MEDS ORDERED: FLUCONAZOLE IV SCH (14:00)
[2017-08-20] MEDS ORDERED: PREMIXED NSS IV SCH (14:00)
[2017-08-20] MEDS ORDERED: NSS IV SCH (14:00)
[2017-08-20 15:11] VITALS: BP 137/85; PULSE 112; TEMP 36.9; O2SAT 92
--- NOTE | 2017-08-20 15:40 | Pharmacy Progress Note ---
Pharmacy Glycemic Sign Off Nt Date of Service Aug 20, 2017. Assessment & Plan ASSESSMENT: * Pharmacy was consulted by Dr De La O on 08/15/17 for glycemic control and to write orders per [facility] inpatient glycemic control protocol. * Major changes made by pharmacy to antidiabetic regimen include: * transition to Novolin 70/30 and metformin for discharge * Patient has been receiving/requiring ~90 units of insulin per day for adequate glycemic control * BSGs ranging 85-170 mg/dl * Regimen has only required minor adjustments over the past 48hrs to achieve this level of control * Do not anticipate further changes in patient status that would quickly deteriorate glycemic control (i.e. patient to be NPO for upcoming procedure, steroids tapering, starting tube feedings, etc). * Please see recommendations for outpatient antidiabetic regimen from 08/19 note PLAN FOR INPATIENT GLYCEMIC CONTROL: * Spoke with Jess Balderrama today since hospitalist service was making changes to insulin regimen. They will manage from this point forward. * A1c added to discharge instructions to be communicated to PCP. * Pharmacy is signing off of glycemic consult and will no longer be making adjustments to inpatient regimen. Please feel free to re-consult if needed. Thank you.
[2017-08-20] MEDS ORDERED: FENTANYL 25 MCG/HR TDSY TD SCH (16:00)
[2017-08-20] MEDS: METFORMIN HCL 500 MG TABCR PO SCH (18:52)
[2017-08-20] MEDS: CHECK FENTANYL PATCH PLACEMENT SCH (18:53)
[2017-08-20 23:25] VITALS: BP 132/89; PULSE 80; TEMP 37; O2SAT 94
[2017-08-21] MEDS: CHECK FENTANYL PATCH PLACEMENT SCH ×4 (00:21→23:39)
[2017-08-21] MEDS: CEFEPIME IV 2,000 MG in SYRINGE 7.5 ML IV SCH ×3 (02:11→18:42)
[2017-08-21] MEDS: OXYCODONE HCL IR 5 MG TAB (IMMEDIATE RELEASE) PO PRN ×3 (05:07→18:42)
[2017-08-21 06:03] LABS: HEMATOCRIT 35.8 % (37-47); MEAN CELL VOLUME 91.8 fL (80-100); MEAN CORPUSCULAR HEMOGLOBIN 30.8 pg (25-34); MEAN CORPUSCULAR HGB CONC 33.5 g/dl (32-36); MEAN PLATELET VOLUME 9.8 fL (7.4-10.4); PLATELET COUNT 450 K/uL (130-400); RED CELL DISTRIBUTION WIDTH CV 12.4 % (11.5-14.5); RED CELL DISTRIBUTION WIDTH SD 41.8 fL (36.4-46.3)
[2017-08-21 06:31] LABS: CREATININE 0.53 mg/dl (0.60-1.20)
[2017-08-21 07:35] VITALS: BP 118/78; PULSE 95; TEMP 38.6; O2SAT 94
[2017-08-21] MEDS: INSULIN ASPART 100 UNITS/ML 3 ML PEN SC SCH ×4 (07:41→20:42)
[2017-08-21] MEDS: CHOLECALCIFEROL 1000 INTER.UNIT TAB PO SCH (09:34)
[2017-08-21] MEDS: OMEGA-3 (PURIFIED FISH OIL) 1 GM CAP PO SCH (09:34)
[2017-08-21] MEDS: ENOXAPARIN 30 MG/0.3 ML SYR SQ SCH ×2 (09:35→20:43)
[2017-08-21] MEDS: INSULIN HUMAN 70% NPH/30% REGULAR SC SCH (10:14)
[2017-08-21] MEDS ORDERED: FLUCONAZOLE / NSS 100 MG in PREMIXED NSS 50 ML IV SCH (14:00)
[2017-08-21 15:15] VITALS: BP 144/82; PULSE 105; TEMP 37.1; O2SAT 93
[2017-08-21] MEDS ORDERED: INSULIN HUMAN 70% NPH/30% REGULAR SC SCH (17:45)
[2017-08-21] MEDS: METFORMIN HCL 500 MG TABCR PO SCH (18:30)
--- NOTE | 2017-08-21 20:34 | Progress Note ---
Subjective Date of Service: Aug 21, 2017. Subjective Pt evaluation today including: conversation w/ patient, physical exam, chart review, lab review, review of inpatient medication list pain control improving walking better with less pain starting to get more comfortale w self insulin management, reiterated basic principles awaiting further input regardig being able to get wound vac at time of discharge no other new complaints Problem List Medical Problems: (1) Non-healing wound of lower extremity Status: Acute Review of Systems all other ROS otherwise negative except for as above Objective Vital Signs Date Time Temp Pulse Resp B/P (MAP) Pulse Ox O2 Delivery O2 Flow Rate FiO2 08/21/17 15:37 Room Air 08/21/17 15:15 37.1 105 18 144/82 (102) 93 Room Air 08/21/17 08:15 Room Air 08/21/17 07:35 38.6 95 16 118/78 (91) 94 Room Air 08/21/17 00:10 Room Air 08/20/17 23:25 37.0 80 16 132/89 (103) 94 Room Air Physical Exam General Appearance: no apparent distress Eyes: EOMI ENT: hearing grossly normal Neck: trachea midline Respiratory/Chest: no respiratory distress, no accessory muscle use Extremities: + pertinent finding (LLE wound vac in place, very mild surrounding erythema not tracking no exudate looks better than prior) 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, alert, normal mood/affect Skin: normal color, warm/dry Laboratory Results Last 24 Hours Test 08/20/17 20:57 08/21/17 01:03 08/21/17 02:16 08/21/17 05:47 Bedside Glucose 70 mg/dl 67 mg/dl 98 mg/dl White Blood Count 13.10 K/uL Red Blood Count 3.90 M/uL Hemoglobin 12.0 g/dL Hematocrit 35.8 % Mean Corpuscular Volume 91.8 fL Mean Corpuscular Hemoglobin 30.8 pg Mean Corpuscular Hemoglobin Concent 33.5 g/dl RDW Standard Deviation 41.8 fL RDW Coefficient of Variation 12.4 % Platelet Count 450 K/uL Mean Platelet Volume 9.8 fL Creatinine 0.53 mg/dl Est Creatinine Clear Calc Drug Dose 124.6 ml/min Estimated GFR () 124.8 Estimated GFR (Non- 107.6 Test 08/21/17 07:34 08/21/17 11:59 08/21/17 17:18 Bedside Glucose 111 mg/dl 136 mg/dl 119 mg/dl Assessment and Plan 52 yo F with PMHx of Left knee surgery, obesity with BMI 32, remote 20 pack year smoking history, quit 2 months ago, but no other known medical history with a left leg wound which she sustained after a metal fence hit her leg approximately 4-6 weeks ago. Left Lower extremity wound s/p surgical clean out and debridement - Continue IV cefepime (started on 08/15) - Wound culture with serratia marcescens, group B beta strep, staph aureus, Morganella morganii: All sensitive to antibiotic as above - Wound culture also growing Sabi albicans - continue fluconazole - wound vac placed 08/18 -was changed 08/20 - Pain control: oxycodone 15 mg Q6H prn, added fentanyl patch 25 mcg to optimize pain relief. doing better with pain PAD Arterial occlusion - multiple areas suggested on arterial Doppler affecting wound healing - Dr Danielson is on consult Newly diagnosed DM - Elevated Glucose > 400 at time of admission, - A1C= 13.4 - NPH 70/30 - this will be the most affordable mechanism for her as an outpatient considering no insurance. 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 given her remarkably good lifestyle on fairly reliable sounding diet/ exercise recall - will send Cpeptide as this may help w management in the future (ie whether to need purely insulin or if she might benefit from insulin sensitizers as well; can consider ICA, GAD65, but if Cpeptide markedly low this would almost be indirectly confirmatory of YOMI, if elevated significantly would be fairly confirmatory of insulin resistance, just with a larger genetic overlay) -continue to titrate insulins - at this point needing to continue reducing -lipids don't fit an insulin resistant type metabolic syndrome profile LE pain -control improving Hx of Smoking - Quit 2 months ago, 20 years x 1ppd. Obesity - diet and exercise surprisingly good based on her recall - ?if she is omittign things and or increasing accounts of exercise? outpt f/u DVT ppx: lovenox, teds, scds on nonaffected leg CODE STATUS: FULL Disposition: From home, CM to assist with dc planning, applying for MA with wound vac
[2017-08-21 23:05] VITALS: BP 113/74; PULSE 108; TEMP 36.9; O2SAT 91
[2017-08-22] VITALS (9 sets, daily range): BP systolic 114–132; BP diastolic 80–91; PULSE 93–104; TEMP 37; O2SAT 92–98
[2017-08-22] MEDS: OXYCODONE HCL IR 5 MG TAB (IMMEDIATE RELEASE) PO PRN (01:34)
[2017-08-22] MEDS: CEFEPIME IV 2,000 MG in SYRINGE 7.5 ML IV SCH (01:34)
[2017-08-22] MEDS: INSULIN ASPART 100 UNITS/ML 3 ML PEN SC SCH ×2 (08:00→12:48)
[2017-08-22] MEDS: CHECK FENTANYL PATCH PLACEMENT SCH (08:00)
[2017-08-22] MEDS: INSULIN HUMAN 70% NPH/30% REGULAR SC SCH (08:30)
[2017-08-22] MEDS ORDERED: FLUCONAZOLE 100 MG TAB PO SCH (09:00)
[2017-08-22] MEDS: OMEGA-3 (PURIFIED FISH OIL) 1 GM CAP PO SCH (09:00)
[2017-08-22] MEDS: CHOLECALCIFEROL 1000 INTER.UNIT TAB PO SCH (09:00)
[2017-08-22] MEDS: ENOXAPARIN 30 MG/0.3 ML SYR SQ SCH (09:00)
[2017-08-22] MEDS ORDERED: ASPIRIN 81 MG CHEW PO STA (09:21)
[2017-08-22] MEDS ORDERED: NITROGLYCERIN 0.4 MG SL PER TAB CHARGE SL STA (09:21)
[2017-08-22] MEDS ORDERED: METOPROLOL TARTRATE 1 MG/ML VIAL IV. STA ×2 (09:22→09:51)
[2017-08-22] MEDS ORDERED: NITROGLYCERIN 0.4 MG SL PER TAB CHARGE ONE (09:25)
[2017-08-22] MEDS ORDERED: ASPIRIN 81 MG CHEW ONE (09:25)
[2017-08-22] MEDS ORDERED: NITROGLYCERIN 0.4 MG SL PER TAB CHARGE SL PRN ×2 (09:30→12:00)
[2017-08-22] MEDS ORDERED: ATORVASTATIN 40 MG TAB PO STA (09:54)
[2017-08-22] MEDS ORDERED: METOPROLOL TARTRATE 1 MG/ML VIAL IV STA (09:54)
[2017-08-22] MEDS ORDERED: NURSING VERBAL MED ORDER ONE ×2 (10:00→13:45)
[2017-08-22] MEDS ORDERED: HEPARIN SOD (PORCINE) 1000 UNIT/ML 10 ML VIAL ONE (10:15)
[2017-08-22] MEDS ORDERED: MIDAZOLAM HCL 1 MG/ML 2ML VIAL ONE (10:15)
[2017-08-22] MEDS ORDERED: NiCARDipine HCL INJ 2.5 MG/ML 10 ML AMP ONE (10:15)
[2017-08-22] MEDS ORDERED: FENTANYL CITRATE INJ 50 MCG/1 ML 2 ML VIAL ONE (10:15)
[2017-08-22] MEDS ORDERED: NITROGLYCERIN/D5W 100MCG/ML 20ML SYR ONE (10:17)
--- NOTE | 2017-08-22 10:33 | Pre Sedation Assessment ---
Pre Sedation Assessment General Date of Sedation: Aug 22, 2017. Vital Signs Past 12 Hours Date Time Temp Pulse Resp B/P (MAP) Pulse Ox O2 Delivery O2 Flow Rate FiO2 08/22/17 10:01 92 117/85 08/22/17 09:34 111 131/90 08/22/17 07:36 37.0 104 16 132/91 (105) 94 Room Air 08/21/17 23:35 Room Air 08/21/17 23:05 36.9 108 18 113/74 (87) 91 Room Air Review Cardiovascular: regular rate, rhythm, no edema Lungs: chest non-tender, lungs clear Pre-Sedation Airway Assessment Smoking Status: Former Smoker Hx of Sleep Apnea: No Hx of difficult intubation: No Short Thick Neck: No Thyro-mental Distance: > 3 Finger Breadths Oral Cavity: WNL Mallampati Classification: Class II ASA Classification: Class III NPO Status Date of Last Intake of Fluids: Aug 16, 2017 Time of Last Intake of Fluids: 1000 Date of Last Intake of Solids: Aug 16, 2017 Time of Last Intake of Solids: 0830 Procedure Planning Contraindications for Sedation: None Current Medications Reviewed: Yes Notes The planned sedation has been discussed with the patient. Informed Consent was obtained. I have identified the patient, determined the appropriateness of sedation and have assessed the patient immediately prior to the procedure. All medicine(s) and interventions are by my order.
[2017-08-22] MEDS ORDERED: HEPARIN 25000 UNIT/500 ML D5W ONE (11:06)
[2017-08-22 11:28] LABS: BASO % 0.1 %; BASO ABS # 0.02 K/uL (0-0.2); HEMATOCRIT 39.8 % (37-47); HEMOGLOBIN 13.7 g/dL (12.0-16.0); IG# 0.09 K/uL (0.00-0.02); LYMPH % 6.7 %; LYMPH ABS # 0.95 K/uL (1.2-3.4); MEAN CELL VOLUME 91.9 fL (80-100); MEAN CORPUSCULAR HEMOGLOBIN 31.6 pg (25-34); MONO % 7.2 %; MONO ABS # 1.01 K/uL (0.11-0.59); NEUT % 85.4 %; NEUT ABS # 12.01 K/uL (1.4-6.5); NUCLEATED RED BLOOD CELL ABS 0.02 K/uL (0-0); PLATELET COUNT 398 K/uL (130-400); RED CELL DISTRIBUTION WIDTH CV 12.3 % (11.5-14.5); WHITE BLOOD COUNT 14.08 K/uL (4.8-10.8)
[2017-08-22 11:32] LABS: MEAN CORPUSCULAR HGB CONC 34.4 g/dl (32-36)
[2017-08-22] MEDS ORDERED: LVNIS30 SQ (11:34)
[2017-08-22] MEDS ORDERED: LPT40 PO (11:34)
[2017-08-22] MEDS ORDERED: NTRSLP4 SL (11:34)
[2017-08-22] MEDS ORDERED: DRGTP25 TD (11:34)
[2017-08-22] MEDS ORDERED: SULF-302 PO (11:34)
[2017-08-22] MEDS ORDERED: SALI0.6510 (11:34)
[2017-08-22] MEDS ORDERED: RXC5 PO (11:34)
[2017-08-22] MEDS ORDERED: DFL100 PO (11:34)
[2017-08-22] MEDS ORDERED: MRLP17X PO (11:34)
[2017-08-22] MEDS ORDERED: TPRSR25 PO (11:34)
[2017-08-22] MEDS ORDERED: INSU70IN2 SC ×2 (11:34)
--- NOTE | 2017-08-22 11:47 | Discharge Instructions ---
Discharge Instructions Date of Service Aug 22, 2017. Admission Reason for Admission: Leg Wound, Left Discharge Discharge Diagnosis / Problem: previously undiagnosed diabetes with multiple complications Discharge Goals Goal(s): Diagnostic testing, Therapeutic intervention Activity Recommendations Activity Level: Assistance Required Therapies: Physical Therapy, Occupational Therapy . Additional Information Patient informed of condition: Yes Advance Directives: No DNR: No Level of Care: Other (tertiary) Communicable Disease: No Prognosis: Other Instructions / Follow-Up Instructions / Follow-Up a) CAD -for evaluation for possible CABG -med management as above, to be modified as appropriate b) peripheral vascular disease with deep leg wound, recent fasciitis and abscess -surgically debrided on 08/16; on IV antibiotics until AM 08/22 when changed to bactrim and fluconazole -wound vac in place -med management for PAD, outpatient follow up with vascular surgery and wound care after discharge c) previously undiagnosed diabetes -strong family history, pt relates very clean diet and regular exercise - uncertain if strong genetic influence for insulin resistance ("atypical DM2") vs autoimmune mechanism (YOMI) - to better delineate efficacy on insulin sensitizing meds, Cpeptide sent and pending (can also consider ICA and GAD65 if Cpeptide doesn't give clear guidance on insulin resistance vs deficiency) -have been titrating 70/30 since with her current uninsured state this is likely the most affordable insulin for her - but at the same time have been discussing/educating not only on this usage, but also have been slowly working to educate on true basal/bolus dosing working on the assumption that she'll likely qualify for coverage that would allow a more physiologic insulin regimen to be affordable. of note, pleading against an insulin resistant pathology, she has been surprisingly fairly sensitive to insulin, and the last several days we have actually been titrating insulin down from the initially ordered starting point due to hypoglycemic events (not surprisingly, most have come in line w peak of NPH activity) d) uninsured state - case management/social work program coordinator have been working on this, paperwork (including short term disability) has been completed - to avoid duplicate work, have social work program coordinator first check-in with [facility] social work program coordinator [phone] Current Hospital Diet Patient's current hospital diet: Diabetes Type 2 Diet Discharge Diet Recommended Diet: Diabetes Type 2 Diet Procedures Procedures Performed: Debridement of left leg wound 30x10 Pending Studies Studies pending at discharge: yes List of pending studies: Cpeptide level pending Laboratory Results Hemoglobin A1c Test 08/15/17 11:00 Range/Units Estimated Average Glucose 338 mg/dl Hemoglobin A1c 13.4 H 4.5-5.6 % Lipid Panel Test 08/17/17 07:07 Range/Units Triglycerides Level 86 0-150 mg/dl Cholesterol Level 117 0-200 mg/dl HDL Cholesterol 36 mg/dl Cholesterol/HDL Ratio 3.3 LDL Cholesterol, Calculated 64 mg/dl Medical Emergencies . Who to Call and When: Medical Emergencies: If at any time you feel your situation is an emergency, please call 911 immediately. . Non-Emergent Contact Non-Emergency issues call your: Primary Care Provider, Quality Control . . "Provider Documentation" section prepared by Gasper Veronica. . Core Measure Problem Core Measures: AMI AMI Core Measures Reason no ASA as I/P: Treatment provided - N/A Reason no ASA at D/C: Treatment provided - N/A Reason no statin as I/P: Treatment provided - N/A Reason no statin at D/C: Treatment provided - N/A
[2017-08-22] MEDS ORDERED: ASPEC81 PO (11:48)
[2017-08-22] MEDS ORDERED: FUROSEMIDE INJ 20 MG in SYRINGE 0 ML IV ONE (12:00)
[2017-08-22] MEDS ORDERED: SULFAMETHOXAZOLE/TRIMETHOPRIM DS 800/160MG TAB PO SCH (12:00)
--- NOTE | 2017-08-22 12:05 | Cardiac Catheterization ---
Procedure Note Procedure Date Aug 22, 2017. Pre-Procedure Diagnosis STEMI AUC Score 9 Post-Procedure Diagnosis Severe CAD, Elevated Intracardiac Pressures Procedure(s) Performed Coronary Angiography, Left Heart Cath Well Head Pumper Tawanda Calciner Operator(s) Jil Estimated Blood Loss 15 Medication(s) Fentanyl, Heparin, Nitroglycerin, Versed, Lidocaine 1% Summary of Findings Indication: Borderline inferior STEMI Access: 6Fr right radial artery Catheters: [place], pigtail Findings: LM - Long vessel with diffuse 70% distal disease LAD - Moderate caliber, diffuse 80-90% mid segment disease; severe diffuse distal disease with 100% possibly acute apical occlusion before wraps around apex. Septals provide left to right collaterals to R-PDA - small-moderate 2nd diagonal with 90% proximal disease Circumflex - 70-80% ostial/proximal disease prior to take of OM1 and OM2. Small distal vessel with 70% stenosis prior to take-off of small L-PLB. - OM1 diffuse moderate disease; OM2 60-70% proximal RCA - Dominant, heavily calcified mid segment with 99% mid segment stenosis. Minimal disease in distal vessel and R-PDA. LVEDP - 35 Arterial Closure: TR Band Summary: 1. Severe 3 vessel and left main coronary artery disease - 70% distal LM - 90% mid LAD, 100% apical LAD. Gives off left to right collaterals to PDA via septals. - 70-80% ostial circumflex - 99% mid RCA 2. Elevated intracardiac filling pressure Recommendations: Patient chest pain free, hemodynamically and electrically stable. Recommend transfer to tertiary center for evaluation for possible CABG. Continue on heparin infusion. IV lasix x 1 Check echocardiogram. Continued ASCVD risk factor modification Hemodynamics Rest Ao: 102/63/81 Final Ao: 112/76/93 LV: 109/11/35 Recommendations CABG Specimens None Radiation Exposure (mGy) 1376 Contrast (mls) 50 Fluids (cc crystalloids) 80 Drains None Anesthesia Moderate Procedural Complication(s) None Disposition PCU ACC Data Cardiac Status Clinical evaluation leading to the procedure CAD Presntation: STEMI Anginal Classification: CCS III Heart Failure: No, NYHA Class: CCS I Cardiogenic Shock w/in 24Hrs: No Cardiac Arrest w/in 24Hrs: No Imaging studies past 6 months: No Stress studies past 6 months: No Closure Device Percutaneous Entry Location: Radial Closure Device: Radial Band Recommendations: CABG Intraprocedure Events Significant Dissection: No Perforation: No
[2017-08-22 12:14] LABS: INR 1.2 (0.9-1.1)
[2017-08-22 12:15] LABS: PTT PATIENT 57.8 SECONDS (21.0-31.0)
[2017-08-22] MEDS ORDERED: HEPA1INJ IV (12:28)
[2017-08-22] MEDS ORDERED: CEPH500T PO (12:28)
[2017-08-22] MEDS ORDERED: HEPARIN 25,000 UNIT/500ML D5W 500 ML IV PRN (13:30)
[2017-08-22] MEDS ORDERED: METOPROLOL TARTRATE 1 MG/ML VIAL IV. ONE (16:12)
--- NOTE | 2017-08-22 16:51 | ECHOCARDIOGRAM REPORT ---
*NOTICE TO RECEIVING REPUBLICAN AGENCY This information is strictly Confidential and protected under [place] law. [place] law prohibits you from making any further disclosure of this information unless further disclosure is expressly permitted by the written consent of the person to whom it pertains or is authorized by law. A general authorization for the release of medical or other information is not sufficient for this purpose. Hospital accepts no responsibility if the information is made available to any other person, INCLUDING THE PATIENT. Interpretation Summary * Name: AISHA ANDINO Study Date: 08/22/2017 01:12 PM BP: 130/91 mmHg * Patient Location: C.2T\S\E216\S\1 HR: 99 * : 1965 (M/d/yyyy) Gender: Female Height: 63 in * Age: 52 yrs Ethnicity: CA Weight: 185 lb * Ordering Physician: Roman Neff * Referring Physician: Self, Referred * Performed By: Carmen Patel RDCS * * Reason For Study: AMI * BSA: 1.9 m2 * -- Conclusions -- * 1. Normal LV size. Borderline concentric LVH. * 2. Moderate LV dysfunction. LVEF 35-40 %. Inferior and inferolateral hypokineisis to akinesis. Apical akinesis with preserved funciton in apical lateral segment. * 3. Normal RV size and function. * 4. Moderate mitral regurgitation * 5. Dilated IVC. Estimated RA 15 mmHg * 6. Grade 2 diastolic dysfunction * 7. Moderate left-sided pleural effusion * 8. Trace pericardial effusion * 9. No prior studies for comparison Procedure Details * A complete two-dimensional transthoracic echocardiogram was performed (2D, M-mode, Doppler and color flow Doppler). * NO DEFINITY USED BECAUSE AMBULANCE HERE TO TRANSFER PATIENT TO [facility] Left Ventricle * The left ventricle is grossly normal size. * There is borderline concentric left ventricular hypertrophy. * Ejection Fraction = 35-40%. * Inferior and inferolateral hypokineisis to akinesis. Apical akinesis with preserved funciton in apical lateral segment. Right Ventricle * The right ventricle is grossly normal size. * The right ventricular systolic function is normal as assessed by tricuspid annular plane systolic excursion (TAPSE) (normal >1.5 cm). Atria * The left atrium is moderately dilated. * Borderline right atrial enlargement. Mitral Valve * The mitral valve is grossly normal. * There is no mitral valve stenosis. * There is moderate mitral regurgitation. Tricuspid Valve * The tricuspid valve is not well visualized, but is grossly normal. * There is trace tricuspid regurgitation. Aortic Valve * No hemodynamically significant valvular aortic stenosis. * There is no significant aortic regurgitation. * Trace aortic regurgitation. Pulmonic Valve * The pulmonic valve is not well visualized. Great Vessels * The aortic root and proximal ascending aorta are normal sized. Pericardium/Pleural * Small pericardial effusion. * Moderate size left pleural effusion. Great Vessels * Dilated inferior vena cava with reduced collapsability with sniff indicates an elevated right atrial pressure of 15 mmHg Left Ventricular Diastolic Function * Diastolic dysfunction, Grade II (pseudonormalization pattern). MMode 2D Measurements and Calculations IVSd 1.1 cm IVSs 1.5 cm LVIDd 4.9 cm LVIDs 3.9 cm LVPWd 1.2 cm LVPWs 1.4 cm IVS/LVPW 0.93 FS 20.5 % EDV(Teich) 113.8 ml ESV(Teich) 66.3 ml EF(Teich) 41.8 % EDV(cubed) 119.0 ml ESV(cubed) 59.7 ml EF(cubed) 49.8 % % IVS thick 39.8 % % LVPW thick 21.6 % LV mass(C)d 212.8 grams LV mass(C)dI 113.8 grams/m\S\2 LV mass(C)s 222.9 grams LV mass(C)sI 119.2 grams/m\S\2 SV(Teich) 47.5 ml SI(Teich) 25.4 ml/m\S\2 SV(cubed) 59.2 ml SI(cubed) 31.7 ml/m\S\2 Ao root diam 3.0 cm Ao root area 6.9 cm\S\2 LA dimension 4.5 cm LA/Ao 1.5 LVAd ap4 36.7 cm\S\2 LVLd ap4 9.1 cm EDV(MOD-sp4) 122.6 ml EDV(sp4-el) 125.2 ml LVAs ap4 27.9 cm\S\2 LVLs ap4 8.7 cm ESV(MOD-sp4) 76.6 ml ESV(sp4-el) 76.6 ml EF(MOD-sp4) 37.5 % EF(sp4-el) 38.8 % LVAd ap2 38.1 cm\S\2 LVLd ap2 9.2 cm EDV(MOD-sp2) 131.4 ml EDV(sp2-el) 134.4 ml LVAs ap2 28.5 cm\S\2 LVLs ap2 8.7 cm ESV(MOD-sp2) 77.1 ml ESV(sp2-el) 79.4 ml EF(MOD-sp2) 41.3 % EF(sp2-el) 40.9 % LVLd %diff 0.49 % EDV(MOD-bp) 127.2 ml LVLs %diff 0.09 % ESV(MOD-bp) 76.7 ml EF(MOD-bp) 39.7 % SV(MOD-sp4) 46.0 ml SI(MOD-sp4) 24.6 ml/m\S\2 SV(MOD-sp2) 54.3 ml SI(MOD-sp2) 29.0 ml/m\S\2 SV(MOD-bp) 50.5 ml SI(MOD-bp) 27.0 ml/m\S\2 SV(sp4-el) 48.6 ml SI(sp4-el) 26.0 ml/m\S\2 SV(sp2-el) 55.0 ml SI(sp2-el) 29.4 ml/m\S\2 Doppler Measurements and Calculations MV E max ananth 97.6 cm/sec MV A max ananth 49.1 cm/sec MV E/A 2.0 MV dec time 0.14 sec Ao V2 max 148.3 cm/sec Ao max PG 8.8 mmHg Ao max PG (full) 6.2 mmHg LV V1 max PG 2.6 mmHg LV V1 max 80.7 cm/sec MR max ananth 501.6 cm/sec MR max PG 100.7 mmHg
--- NOTE | 2017-08-22 17:21 | Progress Note ---
Progress Note Date of Service Aug 22, 2017. 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
--- NOTE | 2017-08-22 17:27 | Discharge Summary ---
Discharge Summary Date of Service Aug 22, 2017. Discharge Summary Admission Date: Aug 15, 2017 at 13:31 Discharge Date: Aug 22, 2017 Discharge Disposition: Acute care facility ([facility]) Principal Diagnosis: uncontrolled (previously undiagnosed) DM with vascular complications Procedures: Interpretation Summary * Name: AISHA ANDINO Study Date: 08/22/2017 01:12 PM BP: 130/91 mmHg * Patient Location: [facility]\S\[facility] [place]\S\1 HR: 99 * : 1965 (M/d/yyyy) Gender: Female Height: 63 in * Age: 52 yrs Ethnicity: CA Weight: 185 lb * Ordering Physician: Roman Neff * Referring Physician: Self, Referred * Performed By: Carmen Patel RDCS * * Reason For Study: AMI * BSA: 1.9 m2 * -- Conclusions -- * 1. Normal LV size. Borderline concentric LVH. * 2. Moderate LV dysfunction. LVEF 35-40 %. Inferior and inferolateral hypokineisis to akinesis. Apical akinesis with preserved funciton in apical lateral segment. * 3. Normal RV size and function. * 4. Moderate mitral regurgitation * 5. Dilated IVC. Estimated RA 15 mmHg * 6. Grade 2 diastolic dysfunction * 7. Moderate left-sided pleural effusion * 8. Trace pericardial effusion * 9. No prior studies for comparison Procedure Details * A complete two-dimensional transthoracic echocardiogram was performed (2D, M-mode, Doppler and color flow Doppler). * NO DEFINITY USED BECAUSE AMBULANCE HERE TO TRANSFER PATIENT TO [place] Left Ventricle * The left ventricle is grossly normal size. * There is borderline concentric left ventricular hypertrophy. * Ejection Fraction = 35-40%. * Inferior and inferolateral hypokineisis to akinesis. Apical akinesis with preserved funciton in apical lateral segment. Right Ventricle * The right ventricle is grossly normal size. * The right ventricular systolic function is normal as assessed by tricuspid annular plane systolic excursion (TAPSE) (normal >1.5 cm). Atria * The left atrium is moderately dilated. * Borderline right atrial enlargement. Mitral Valve * The mitral valve is grossly normal. * There is no mitral valve stenosis. * There is moderate mitral regurgitation. Tricuspid Valve * The tricuspid valve is not well visualized, but is grossly normal. * There is trace tricuspid regurgitation. Aortic Valve * No hemodynamically significant valvular aortic stenosis. * There is no significant aortic regurgitation. * Trace aortic regurgitation. Pulmonic Valve * The pulmonic valve is not well visualized. Great Vessels * The aortic root and proximal ascending aorta are normal sized. Pericardium/Pleural * Small pericardial effusion. * Moderate size left pleural effusion. Great Vessels * Dilated inferior vena cava with reduced collapsability with sniff indicates an elevated right atrial pressure of 15 mmHg Left Ventricular Diastolic Function * Diastolic dysfunction, Grade II (pseudonormalization pattern). Procedure Note Procedure Date Aug 22, 2017. Pre-Procedure Diagnosis STEMI AUC Score 9 Post-Procedure Diagnosis Severe CAD, Elevated Intracardiac Pressures Procedure(s) Performed Coronary Angiography, Left Heart Cath Anatomy And Physiology Instructor Tawanda Supervisor [employer](s) Jil Estimated Blood Loss 15 Medication(s) Fentanyl, Heparin, Nitroglycerin, Versed, Lidocaine 1% Summary of Findings Indication: Borderline inferior STEMI Access: 6Fr right radial artery Catheters: [place], pigtail Findings: LM - Long vessel with diffuse 70% distal disease LAD - Moderate caliber, diffuse 80-90% mid segment disease; severe diffuse distal disease with 100% possibly acute apical occlusion before wraps around apex. Septals provide left to right collaterals to R-PDA - small-moderate 2nd diagonal with 90% proximal disease Circumflex - 70-80% ostial/proximal disease prior to take of OM1 and OM2. Small distal vessel with 70% stenosis prior to take-off of small L-PLB. - OM1 diffuse moderate disease; OM2 60-70% proximal RCA - Dominant, heavily calcified mid segment with 99% mid segment stenosis. Minimal disease in distal vessel and R-PDA. LVEDP - 35 Arterial Closure: TR Band Summary: 1. Severe 3 vessel and left main coronary artery disease - 70% distal LM - 90% mid LAD, 100% apical LAD. Gives off left to right collaterals to PDA via septals. - 70-80% ostial circumflex - 99% mid RCA 2. Elevated intracardiac filling pressure Recommendations: Patient chest pain free, hemodynamically and electrically stable. Recommend transfer to tertiary center for evaluation for possible CABG. Continue on heparin infusion. IV lasix x 1 Check echocardiogram. Continued ASCVD risk factor modification Hemodynamics Rest Ao: 102/63/81 Final Ao: 112/76/93 LV: 109/11/35 Recommendations CABG Specimens None Radiation Exposure (mGy) 1376 Contrast (mls) 50 Fluids (cc crystalloids) 80 Drains None Anesthesia Moderate Procedural Complication(s) None Disposition PCU ACC Data Cardiac Status Clinical evaluation leading to the procedure CAD Presntation: STEMI Anginal Classification: CCS III Heart Failure: No, NYHA Class: CCS I Cardiogenic Shock w/in 24Hrs: No Cardiac Arrest w/in 24Hrs: No Imaging studies past 6 months: No Stress studies past 6 months: No Closure Device Percutaneous Entry Location: Radial Closure Device: Radial Band Recommendations: CABG Intraprocedure Events Significant Dissection: No Perforation: No [~ rep ct add3]] ART DOP LOWER EXT BILAT CLINICAL HISTORY: 52 years-old Female presenting with eval for arterial competency, nonhealing left ankle wound. TECHNIQUE: Real-time grayscale and color and spectral Doppler ultrasound imaging of the bilateral lower extremities arteries was performed. Measurements calculated based on NASCET criteria. COMPARISON: None. FINDINGS: Right: Common femoral artery: Patent. Peak systolic velocity 67 cm/s. Superficial femoral artery: Atherosclerosis. Peak systolic velocity 123 cm/s proximally, 54 cm/s in the midportion, and 29 cm/s distally. Focal defect in the distal right SFA with aliasing and low resistance high velocity waveforms, peak systolic velocity 478 cm/s. Beyond this, the right SFA demonstrates an occluded segment with thrombus. This measures 3.8 cm in length. Reconstitution of flow in the distal most right SFA with peak systolic velocity 17-55 cm/s. Deep femoral artery: Patent. Peak systolic velocity 74 cm/s. Popliteal artery: Patent. Peak systolic velocity 49-80 cm/s. Anterior tibial artery: Patent. Peak systolic velocity 41-46 cm/s. Posterior tibial artery: Partially patent. Peak systolic velocity 14-23 cm/s in the patent portion. The mid SHIFT COORDINATOR appears occluded. Duplicated right posterior tibial veins patent. The distal right SHIFT COORDINATOR is patent though with reversed flow likely indicating reconstitution from distal collateral vessel. Peroneal artery: Patent. Peak systolic velocity 24-30 cm/s. Dorsalis pedis: Patent. Peak systolic velocity 32 cm/s. Left: Common femoral artery: Patent. Peak systolic velocity 64 cm/s. Superficial femoral artery: Significant atherosclerotic plaque at the origin and proximal course of the left SFA. Immediately proximal to the most significant site of resultant stenosis, the left SFA has a peak systolic velocity 31 cm/s. At the site of stenoses, peak systolic velocity 128-132 cm/s. Beyond this, the remainder of the left SFA is occluded. Deep femoral artery: Patent. Peak systolic velocity 59 cm/s. Popliteal artery: Reconstitution of flow, which is reversed in the proximal left popliteal artery. Beyond this, the popliteal artery demonstrates normal directional flow with low resistance waveforms and a peak systolic velocity 66 cm/s. Anterior tibial artery: Blunted waveforms. Peak systolic velocity 18-61 cm/s. Posterior tibial artery: Highly diminished flow. Peroneal artery: Highly diminished flow. The left peroneal vein may be occluded. Dorsalis pedis: Patent. Peak systolic velocity 30 cm/s. ZAC Brachial: Right: 143 mmHg, Left: 150 mmHg. Ankle (Posterior tibial): Right: 67 mmHg, Left: Not obtained. Ankle (Dorsalis pedis): Right: 82 mmHg, Left: Not obtained. Ankle/Brachial Index: Right: 0.45-0.55, Left: Not obtained. Reference ranges: Normal ZAC 1.0-1.4; 0.9-0.99 borderline; less than 0.9 abnormal. IMPRESSION: 1. 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 Immediately beyond this, there is a short segment of occlusion in the distal aspect of the right superficial femoral artery. 2. Partial occlusion of the right posterior tibial artery with distal reconstitution of flow. 3. Abnormal right ankle brachial index, consistent with diminished flow to the right lower extremity. 4. Multifocal sites of stenoses in the proximal left superficial femoral artery secondary to atherosclerotic plaque. These appear hemodynamically significant evidenced by the degree of increased velocity. 5. Long segment of occlusion of the left SFA beyond the sites of stenoses. 6. Reconstitution of flow in the left popliteal artery. The remainder of the left lower leg demonstrates diminished flow though the dorsalis pedis remains patent. 7. Left ankle brachial index could not be obtained secondary to wound. The report will be called/faxed according to standard departmental protocol. Electronically signed by: Hammad Estevez M.D. 08/16/2017 7:43 AM Dictated Date/Time: 08/16/2017 7:22 AM L LOWER EXT NONJOINT COMBO CLINICAL HISTORY: Assess for abscess, osteomyelitis pain. Infection. TECHNIQUE: Multi axial MRI acquisition pre and post gadolinium enhancement. COMPARISON STUDY: None FINDINGS: Signal characteristics the osseous structures indicate a mild bone contusion involving the distal tibia as well as bulk of the intertarsal region. There are findings of a soft tissue wound lateral to the distal aspect of the distal fibula. There appears to be a moderate degree of packing material within the superficial wound. All major ligamentous and tendinous structures appear to be intact. Postcontrast images show evidence for a generalized cellulitis about the peripheral aspects of the ankle. This includes the ventral as well as the dorsal aspects of the ankle. All major ligamentous and tendinous structures appear to be intact. There does not appear to be evidence for a bony destructive process. There is no significant or abnormal postcontrast enhancement of the distal fibula or any additional osseous structure. There is no drainable abscess or collection. IMPRESSION: 1. Findings consistent with a mild generalized cellulitis involving the soft tissue structures and fat about the left ankle. 2. No evidence for osteomyelitis based on this study. 3. No evidence for drainable abscess or collection. 4. Mild bone contusion involving the tarsal bones and distal tibia. The above report was generated using voice recognition software. It may contain grammatical, syntax or spelling errors. Electronically signed by: Arsenio Rendon M.D. 08/15/2017 5:20 PM Dictated Date/Time: 08/15/2017 5:10 PM Hemoglobin A1c Test 08/15/17 11:00 Range/Units Estimated Average Glucose 338 mg/dl Hemoglobin A1c 13.4 H 4.5-5.6 % Lipid Panel Test 08/17/17 07:07 Range/Units Triglycerides Level 86 0-150 mg/dl Cholesterol Level 117 0-200 mg/dl HDL Cholesterol 36 mg/dl Cholesterol/HDL Ratio 3.3 LDL Cholesterol, Calculated 64 mg/dl Last Resulted CBC 08/22/17 11:19 Red Blood Count 4.33, Mean Corpuscular Volume 91.9, Mean Corpuscular Hemoglobin 31.6, Mean Corpuscular Hemoglobin Concent 34.4, Mean Platelet Volume 10.0, Neutrophils (%) (Auto) 85.4, Lymphocytes (%) (Auto) 6.7, Monocytes (%) (Auto) 7.2, Eosinophils (%) (Auto) 0.0, Basophils (%) (Auto) 0.1, Neutrophils # (Auto) 12.01, Lymphocytes # (Auto) 0.95, Monocytes # (Auto) 1.01, Eosinophils # (Auto) 0.00, Basophils # (Auto) 0.02 Last Resulted BMP 08/17/17 07:07 08/21/17 05:47 Immediate Operative Summary Operative Date Aug 16, 2017. Pre-Operative Diagnosis Left lower extremity wound possible fascitis Post-Operative Diagnosis Left lower extremity wound with fasciitis Procedure(s) Performed Debridement of left leg wound 30x10 Surgeon Dr Danielson Supervisor [employer] Surgeon(s) Najma Page MD Estimated Blood Loss 30 Findings Consistent with Post-Op Diagnosis Specimens Routine culture and sensitivitiy , anaerobic of left lower leg wound Drains None Anesthesia Type General Complication(s) none Disposition Accompanied Pt To Recover: no Disposition: Recovery Room / PACU Consultations: vascular surgery cardiology Medication Reconciliation New Medications: Aspirin (Aspirin EC Low Dose) 81 Mg Ectab 1 TAB PO DAILY, #1 TAB Cephalexin (Cephalexin) 500 Mg Tab 1 TAB PO QID, #1 TAB Heparin Sodium (Porcine) (Heparin Sodium) 1,000 Unit/Ml Inj 1 DROP IV UD, #1 Atorvastatin (Lipitor) 40 Mg Tab 80 MG PO QAM, #1 TAB Enoxaparin (Lovenox) 30 Mg/0.3 Ml Inj 30 MG SQ Q12, #1 Fentanyl (Fentanyl) 25 Mcg Tdsy 25 MCG TD Q72H, #1 Fluconazole (Fluconazole) 100 Mg Tab 100 MG PO QAM, #1 TAB Insulin Human Isophan/Regular (Novolin 70/30) Inj 18 UNITS SC QDD, #1 Insulin Human Isophan/Regular (Novolin 70/30) Inj 45 UNITS SC QDB, #1 Metoprolol Succinate (Metoprolol Succinate ER) 25 Mg Tabcr 25 MG PO QAM, #1 Nitroglycerin (Nitrostat) 0.4 Mg/1 Tab Subl 0.4 MG SL Q5M PRN for Chest Pain, #1 Oxycodone HCl (Oxycodone HCl) 5 Mg Tab 15 MG PO Q6 PRN for Pain, #1 TAB Polyethylene (Miralax) 17 Gm Pow 17 GM PO DAILY PRN for Constipation, #1 Saline (Azure Nasal Etoile) 0.65 % Spr 1 SPRAYS NA PRN PRN for DRYNESS, #1 Sulfamethoxazole-Trimethoprim (Smz-Tmp Ds) 1 Tab Tab 1 TAB PO Q12, #1 TAB Continued Medications: Cholecalciferol (Vitamin D) 1,000 Unit Tab 1000 UNITS PO DAILY Fish Oil (Rolla-3) 1 Ea Cap 1 CAP PO DAILY Vitamin A-Beta Carotene (Vitamin A) 1 Tab Tab 1 TAB PO DAILY Hospital Course 52 yo F with PMHx of Left knee surgery, obesity with BMI 32, remote 20 pack year smoking history, quit 2 months ago, but no other known medical history with a left leg wound which she sustained after a metal fence hit her leg approximately 4-6 weeks ago. CAD w STEMI -med management, taken urgently to dairy lab technician - findings as above. more stable post cath feeling better overall (just overwhelmed) - stable for transfer to [facility] for considerations for CABG Left Lower extremity wound s/p surgical clean out and debridement - changed to bactrim, keflex - Wound culture with serratia marcescens, group B beta strep, staph aureus, Morganella morganii - Wound culture also growing Sabi albicans - continue fluconazole - wound vac placed 08/18 -was changed 08/20, should continue - Pain control: oxycodone 15 mg Q6H prn, added fentanyl patch 25 mcg to optimize pain relief. doing better with pain PAD Arterial occlusion - multiple areas suggested on arterial Doppler affecting wound healing - Dr Danielson is on consult Newly diagnosed DM - Elevated Glucose > 400 at time of admission, - A1C= 13.4 - NPH 70/30 - this will be the most affordable mechanism for her as an outpatient considering no insurance. 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 given her remarkably good lifestyle on fairly reliable sounding diet/ exercise recall - will send Cpeptide as this may help w management in the future (ie whether to need purely insulin or if she might benefit from insulin sensitizers as well; can consider ICA, GAD65, but if Cpeptide markedly low this would almost be indirectly confirmatory of YOMI, if elevated significantly would be fairly confirmatory of insulin resistance, just with a larger genetic overlay) -continue to titrate insulins - at this point needing to continue reducing -lipids don't fit an insulin resistant type metabolic syndrome profile LATE ADDENDUM IS THAT DUE TO PT NOT BEING IN FASTING STATE THIS AM CPEPTIDE WAS NOT YET SENT BY LAB LE pain -control improving Hx of Smoking - Quit 2 months ago, 20 years x 1ppd. Obesity - diet and exercise surprisingly good based on her recall - ?if she is omitting things and or increasing accounts of exercise? outpt f/u DVT ppx: lovenox, teds, scds on nonaffected leg CODE STATUS: FULL transfer to [facility] Total Time Spent: Less than 30 minutes This includes examination of the patient, discharge planning, medication reconciliation, and communication with other providers. Discharge Instructions Please refer to the electronic Patient Visit Report (Discharge Instructions) for additional information.
--- NOTE | 2017-08-22 22:33 | CARDIOLOGY CONSULTATION ---
DATE OF CONSULTATION: 08/22/2017 CONSULTATION REQUESTED BY: Gasper Veronica DO. REASON FOR CONSULTATION: Suspected acute coronary syndrome, borderline inferior ST elevation. HISTORY OF PRESENT ILLNESS: Mrs. Starkey is a 52-year-old woman with no real significant past medical history up until the last week. She was admitted 1 week ago in the setting of slow healing lower extremity ulceration of her left lower extremity with concern initially for abscess status/fascitis. She underwent debridement by Dr. Danielson on 08/17/2017 and has been treated with broad spectrum antibiotics for multiple organisms growing out in wound cultures. She has a wound VAC in place and was awaiting placement. This morning, patient was noted to be more confused, had an episode of feeling clammy and not herself. Denied any raj chest pain or shortness of breath. An EKG was obtained which showed subtle inferior ST elevations and interventional cardiology was consulted for possible cardiac catheterization. PAST MEDICAL HISTORY: 1. Newly diagnosed diabetes, A1c 13.4. 2. Recent lower extremity ulceration complicated by abscess and fasciitis. 3. Peripheral arterial disease. 4. Hypertension. FAMILY HISTORY: No family history of coronary artery disease of premature origin or sudden cardiac . 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 INPATIENT MEDICATIONS: Include insulin, oxycodone, MiraLax, metformin, fish oil, Lovenox, atorvastatin and metoprolol, started today. ALLERGIES: PENICILLIN. REVIEW OF SYSTEMS: Not completed in an urgent situation. PHYSICAL EXAMINATION: VITAL SIGNS: Temperature 37.0, pulse 99, blood pressure 130/91, satting 92% on room air. GENERAL: The patient appeared comfortable and in no acute distress. HEENT: Sclerae are anicteric. Oropharynx is clear. Mucous membranes are moist. NECK: Supple with no lymphadenopathy. LUNGS: Clear to auscultation bilaterally. HEART: Regular rate and rhythm. She has a 3/6 holosystolic murmur heard best at the apex. ABDOMEN: Soft, nontender. EXTREMITIES: Warm. She has a wound VAC placed in her left lower extremity. She has 2+ radial pulses bilaterally. SKIN: Shows no rashes or lesions. NEUROLOGIC: Nonfocal. IMPRESSION: 1. NSTEMI 2. Multivessel coronary artery disease 3. Cardiomyopathy 4. PAD 5. Newly diagnosed DM 6. Hypertension 7. Lower extremity ulcer Patient with new symptoms, elevated troponin and ECG changes this morning. Taken urgently to cardiac fence laborer and found to have severe multivessel disease with left main involvement. Acute vessel thought to be apical LAD. Patient at time of cath was chest pain free and hemodynamically and electrically stable. From a cardiac standpoint thought to be best served by transfer to tertiary center for consideration of bypass surgery. Case discussed with cardiology at [facility] who agreed to accept the patient. Plan to transfer on heparin infusion. Continue current secondary prevention regimen. MTDD
[2017-08-23] MEDS ORDERED: ATORVASTATIN 40 MG TAB PO SCH (09:00)
[2017-08-23] MEDS ORDERED: METOPROLOL SUCC 25MG EXT REL TAB PO SCH (09:00)
[2017-08-23] MEDS ORDERED: FENTANYL PATCH REMOVE & WASTE SCH (15:59)
== END 2017-08-22 16:13 | disposition short-term general hospital (02) | DRG 981 ==
LOC: C.EDB 09:39 → C.MSW 13:31 → ENRESERV 13:58 → C.2T 08-22 12:28
PROVIDERS: ADMIT Internal Medicine; ATTEND Family Medicine
PROC: 0LBP0ZZ Excision of Left Lower Leg Tendon, Open Approach (ICD-10-PCS; principal; 2017-08-16 11:00)
PROC: B211YZZ Fluoroscopy of Multiple Coronary Arteries using Other Contrast (ICD-10-PCS; 2017-08-22)
PROC: 4A023N7 Measurement of Cardiac Sampling and Pressure, Left Heart, Percutaneous Approach (ICD-10-PCS; 2017-08-22)
DX: E11.69 Type 2 diabetes mellitus with other specified complication (principal); I21.3 ST elevation (STEMI) myocardial infarction of unspecified site; I42.9 Cardiomyopathy, unspecified; L03.116 Cellulitis of left lower limb; E11.51 Type 2 diabetes mellitus with diabetic peripheral angiopathy without gangrene; S91.002A Unspecified open wound, left ankle, initial encounter; M72.9 Fibroblastic disorder, unspecified; E66.9 Obesity, unspecified; Z68.32 Body mass index [BMI] 32.0-32.9, adult; Z87.891 Personal history of nicotine dependence; Z83.3 Family history of diabetes mellitus; Z88.0 Allergy status to penicillin; I25.10 Atherosclerotic heart disease of native coronary artery without angina pectoris; I25.82 Chronic total occlusion of coronary artery; I10 Essential (primary) hypertension; B96.89 Other specified bacterial agents as the cause of diseases classified elsewhere; B95.1 Streptococcus, group B, as the cause of diseases classified elsewhere; B95.8 Unspecified staphylococcus as the cause of diseases classified elsewhere; B37.89 Other sites of candidiasis; Y92.017 Garden or yard in single-family (private) house as the place of occurrence of the external cause; W20.8XXA Other cause of strike by thrown, projected or falling object, initial encounter